=== PATIENT | female | born 1960 | race African-American/Black ===

== ENCOUNTER 2016-12-15 13:42 | Emergency (ER) | payer MEDICARE, MEDICAID ==
[~2016-12-15] VITALS: Ht 172.7 cm; Wt 90.0 kg
[~2016-12-15 13:42] MED LIST: AMLO10TA80 PO; ASPI-1035 PO; CINA30 PO; HYDR-4135 PO; LOSA100T14 PO; MONT10TA24; NEPHRO VITE PO; SEVE800T8 PO
[2016-12-15 13:57] VITALS: BP 128/76
[2016-12-15 14:46] LABS: HEMOGLOBIN. 11.6 g/dL (12.0-16.0); MEAN CORPUSCULAR HEMOGLOBIN 30.1 pg (28.0-32.0); MEAN CORPUSCULAR HGB CONC 33.2 g/dL (31.0-37.0); MEAN CORPUSCULAR VOLUME 90.7 fL (81.0-99.0); MEAN PLATELET VOLUME 8.4 fl (7.4-10.4); PLATELET 177 x1000/uL (130-400); RED BLOOD CELL COUNT 3.85 mill/uL (4.2-5.4); RED CELL DISTRIBUTION WIDTH 18.4 % (11.6-14.6); WHITE BLOOD COUNT 5.4 x1000/uL (4.5-11.0)
[2016-12-15 14:52] LABS: DIFFERENTIAL COMMENT 1
[2016-12-15 14:54] LABS: INR 1.1; PROTHROMBIN TIME 11.2 sec
[2016-12-15 15:08] LABS: ALANINE AMINOTRANSFERASE 32 IU/L (13-61); ALBUMIN 3.9 g/dL (3.4-5.0); ANION GAP 17; CALCIUM 8.7 mg/dL (8.5-10.1); CARBON DIOXIDE 31 mEq/L (21-32); CHLORIDE 96 mEq/L (98-107); INDEX HEMOLYSI 1 (1-3); INDEX ICTERIC 1 (1-4); INDEX LIPEMIC 1 (1-3); UREA NITROGEN BLOOD 45 mg/dL (7-21); eGFR 5 mL/min (>60)
[2016-12-15 15:15] LABS: NT PRO B-TYPE NATRIURETIC PEP 56652 pg/mL (5-125)
[2016-12-15 15:31] LABS: ANISOCYTOSIS 1+; PLATELET ESTIMATE NORMAL
== END 2016-12-15 16:25 | disposition home or self-care (01) ==
LOC: ER 15:49
DX: I12.0 Hypertensive chronic kidney disease with stage 5 chronic kidney disease or end stage renal disease (principal); N18.6 End stage renal disease; I25.2 Old myocardial infarction; N18.9 Chronic kidney disease, unspecified; E11.9 Type 2 diabetes mellitus without complications; I51.9 Heart disease, unspecified; Z99.2 Dependence on renal dialysis; Z79.82 Long term (current) use of aspirin; Z98.51 Tubal ligation status
CPT/HCPCS: 36415; 71010; 80053; 83880; 85025; 85610; 93005; 99285

== ENCOUNTER 2017-04-01 20:22 | Emergency (ER) | payer MEDICARE, MEDICAID ==
[~2017-04-01] VITALS: Ht 172.7 cm; Wt 84.0 kg
[~2017-04-01 20:22] MED LIST changes: -ASPI-1035 PO; +ASPI-1158 PO
[2017-04-01] MEDS ORDERED: IBUPROFEN 600MG TABLET PO STA (20:50)
[2017-04-01 21:08] LABS: BASOPHILS % 0.8 % (0.0-2.0); EOSINOPHILS % 3.5 % (0.0-5.0); HEMOGLOBIN. 11.7 g/dL (12.0-16.0); LYMPHOCYTES % 19.6 % (20.0-50.0); MEAN CORPUSCULAR HEMOGLOBIN 29.2 pg (28.0-32.0); MEAN CORPUSCULAR VOLUME 89.8 fL (81.0-99.0); NEUTROPHILS % 64.1 % (40.0-76.0); PLATELET 168 x1000/uL (130-400); RED BLOOD CELL COUNT 4.01 mill/uL (4.2-5.4); RED CELL DISTRIBUTION WIDTH 17.5 % (11.6-14.6)
[2017-04-01 21:11] LABS: CHLORIDE 96 mEq/L (98-107)
[2017-04-01 21:22] LABS: CARBON DIOXIDE 30 mEq/L (21-32)
[2017-04-01 23:16] VITALS: BP 160/75
== END 2017-04-01 23:17 | disposition home or self-care (01) ==
LOC: ER 21:38
DX: R10.32 Left lower quadrant pain (principal); R63.4 Abnormal weight loss; E11.22 Type 2 diabetes mellitus with diabetic chronic kidney disease; I12.0 Hypertensive chronic kidney disease with stage 5 chronic kidney disease or end stage renal disease; N18.6 End stage renal disease; Z99.2 Dependence on renal dialysis; M54.5 Low back pain; Z68.28 Body mass index [BMI] 28.0-28.9, adult; Z79.82 Long term (current) use of aspirin; Z79.899 Other long term (current) drug therapy
CPT/HCPCS: 36415; 74176; 80053; 85025; 99285

== ENCOUNTER 2017-07-25 20:43 | Inpatient (IN) | payer MEDICARE, MEDICAID ==
[~2017-07-25] VITALS: Ht 172.7 cm; Wt 80.5 kg
[~2017-07-25 20:43] MED LIST changes: +AZOPT BOTHEYE; -LOSA100T14 PO; -MONT10TA24; -NEPHRO VITE PO; +NEPVIT PO; +ZOLP5TAB8 PO
[2017-07-25 22:00] VITALS: BP 132/66
[2017-07-25] MEDS ORDERED: MAGNESIUM/ALUMINUM HYDROXIDE/SIMETHICONE 30ML UDC PO PRN (22:15)
[2017-07-25] MEDS ORDERED: DIPHENHYDRAMINE 50MG/ML VIAL IV PRN (22:15)
[2017-07-25] MEDS ORDERED: IPRATROPIUM/ALBUTEROL 0.5-3(2.5)MG/3ML NEB HHN PRN (22:15)
[2017-07-25] MEDS ORDERED: DEXTROSE 50% WATER 50ML SYRINGE IV PRN (22:15)
[2017-07-25] MEDS ORDERED: CLONIDINE 0.1MG TABLET PO PRN (22:15)
[2017-07-25] MEDS ORDERED: ONDANSETRON HCL 4MG/2ML VIAL IV PRN (22:15)
[2017-07-25] MEDS: BRIMONIDINE 0.2% OPHTH DROPS 5ML BOTHEYE SCH (22:30)
[2017-07-25] MEDS: DORZOLAMIDE 2% OPHTH 10 ML BOTTLE BOTHEYE SCH (23:30)
[2017-07-25] MEDS: BLOOD SUGAR DIAGNOSTIC STRIP TEST SCH (23:57)
[2017-07-25] MEDS: LOSARTAN POTASSIUM 100 MG TABLET PO SCH (23:57)
[2017-07-25] MEDS: DEXAMETHASONE 4MG/ML 1ML VIAL IV SCH (23:57)
[2017-07-26] MEDS: INSULIN LISPRO 100 UNITS/ML SUBCUT SCH ×5 (00:17→23:33)
[2017-07-26] MEDS: BLOOD SUGAR DIAGNOSTIC STRIP TEST SCH ×4 (06:37→23:22)
[2017-07-26] MEDS: DORZOLAMIDE 2% OPHTH 10 ML BOTTLE BOTHEYE SCH ×4 (06:37→23:28)
[2017-07-26 06:50] LABS: HEMATOCRIT. 40.6 % (36.0-48.0); HEMOGLOBIN. 13.5 g/dL (12.0-16.0); MEAN CORPUSCULAR HEMOGLOBIN 30.4 pg (28.0-32.0); MEAN CORPUSCULAR VOLUME 91.4 fL (81.0-99.0); MEAN PLATELET VOLUME 9.4 fl (7.4-10.4); PLATELET 161 x1000/uL (130-400); RED BLOOD CELL COUNT 4.44 mill/uL (4.2-5.4); RED CELL DISTRIBUTION WIDTH 18.1 % (11.6-14.6)
[2017-07-26 07:15] LABS: CHLORIDE 99 mEq/L (98-107)
[2017-07-26 07:27] LABS: CARBON DIOXIDE 26 mEq/L (21-32); PREALBUMIN 20.3 mg/dL (20.0-40.0)
[2017-07-26 08:00] VITALS: BP 136/70
[2017-07-26] MEDS ORDERED: HYDRALAZINE HCL 50MG TABLET PO SCH (09:00)
[2017-07-26] MEDS: FOLIC ACID/VITAMIN B COMP W-C TABLET PO SCH (09:46)
[2017-07-26] MEDS: SEVELAMER CARBONATE 800 MG TABLET PO SCH ×3 (09:46→17:44)
[2017-07-26] MEDS: AMLODIPINE 10MG TABLET PO SCH (09:47)
[2017-07-26] MEDS: HYDRALAZINE HCL 50MG TABLET PO SCH ×2 (09:47→21:00)
[2017-07-26] MEDS: DOCUSATE SODIUM 100MG CAPSULE PO SCH ×2 (09:47→17:44)
[2017-07-26] MEDS: HYDROCODONE/ACETAMINOPHEN 5/325MG TABLET PO PRN ×2 (09:48→20:56)
[2017-07-26] MEDS: BRIMONIDINE 0.2% OPHTH DROPS 5ML BOTHEYE SCH ×3 (09:49→23:28)
[2017-07-26 14:10] VITALS: BP_SYST 119; BP_SYST 123; BP_DIAS 50; BP_DIAS 53
[2017-07-26] MEDS: CINACALCET HCL 30MG TABLET PO SCH (17:45)
[2017-07-26 20:00] VITALS: BP 129/58
[2017-07-26] MEDS: LOSARTAN POTASSIUM 100 MG TABLET PO SCH (20:54)
[2017-07-26 21:50] LABS: PLATELET ESTIMATE NORMAL
[2017-07-26] MEDS: DEXAMETHASONE 4MG/ML 1ML VIAL IV SCH (23:27)
[2017-07-27 06:33] LABS: BASOPHILS % 0.3 % (0.0-2.0); EOSINOPHILS % 0.1 % (0.0-5.0); HEMOGLOBIN. 14.5 g/dL (12.0-16.0); LYMPHOCYTES % 7.3 % (20.0-50.0); MEAN CORPUSCULAR HEMOGLOBIN 29.9 pg (28.0-32.0); MEAN CORPUSCULAR VOLUME 90.8 fL (81.0-99.0); MEAN PLATELET VOLUME 9.3 fl (7.4-10.4); NEUTROPHILS % 86.3 % (40.0-76.0); PLATELET 183 x1000/uL (130-400); RED BLOOD CELL COUNT 4.84 mill/uL (4.2-5.4); RED CELL DISTRIBUTION WIDTH 17.1 % (11.6-14.6)
[2017-07-27] MEDS: BRIMONIDINE 0.2% OPHTH DROPS 5ML BOTHEYE SCH ×3 (06:33→21:45)
[2017-07-27] MEDS: BLOOD SUGAR DIAGNOSTIC STRIP TEST SCH ×3 (06:40→17:28)
[2017-07-27] MEDS: INSULIN LISPRO 100 UNITS/ML SUBCUT SCH ×3 (06:47→17:28)
[2017-07-27] MEDS: DORZOLAMIDE 2% OPHTH 10 ML BOTTLE BOTHEYE SCH ×3 (06:48→23:30)
[2017-07-27 08:00] VITALS: BP 155/76
[2017-07-27 08:22] LABS: PHOSPHORUS 3.4 mg/dL (2.5-4.9)
[2017-07-27] MEDS: AMLODIPINE 10MG TABLET PO SCH (09:00)
[2017-07-27] MEDS: HYDRALAZINE HCL 50MG TABLET PO SCH ×2 (09:00→21:44)
[2017-07-27] MEDS: SEVELAMER CARBONATE 800 MG TABLET PO SCH ×3 (09:30→18:12)
[2017-07-27] MEDS: FOLIC ACID/VITAMIN B COMP W-C TABLET PO SCH (09:31)
[2017-07-27] MEDS: DOCUSATE SODIUM 100MG CAPSULE PO SCH ×2 (09:31→18:18)
[2017-07-27] MEDS ORDERED: NA PHOS,M-B/NA PHOS,DI-BA ENEMA 118ML PR NR (10:00)
[2017-07-27] MEDS: LACTULOSE 20G/30ML UDC PO SCH ×4 (10:30→21:00)
[2017-07-27] MEDS: HYDROCODONE/ACETAMINOPHEN 5/325MG TABLET PO PRN (14:25)
[2017-07-27] MEDS: CINACALCET HCL 30MG TABLET PO SCH (18:12)
[2017-07-27] MEDS ORDERED: NA PHOS,M-B/NA PHOS,DI-BA ENEMA 118ML PR PRN (18:45)
[2017-07-27 19:51] LABS: HEPATITIS B SURFACE ANTIGEN NEGATIVE
[2017-07-27 20:00] VITALS: BP 149/64
[2017-07-27 20:20] LABS: HEPATITIS B CORE AB IGM NEGATIVE
[2017-07-27 20:21] LABS: HEPATITIS A AB IGM NEGATIVE (NEGATIVE)
[2017-07-27] MEDS: ZOLPIDEM TARTRATE 5MG TABLET PO PRN (21:44)
[2017-07-27] MEDS: POLYETHYLENE GLYCOL 3350 (17GM) 1 DOSE PACK PO SCH (21:44)
[2017-07-27] MEDS: LOSARTAN POTASSIUM 100 MG TABLET PO SCH (21:45)
[2017-07-27] MEDS: INSULIN DETEMIR UD 100 UNITS/ML SYR SUBCUT SCH (21:55)
[2017-07-28] MEDS: BLOOD SUGAR DIAGNOSTIC STRIP TEST SCH ×5 (00:01→23:25)
[2017-07-28] MEDS: HYDROCODONE/ACETAMINOPHEN 5/325MG TABLET PO PRN ×3 (00:18→21:26)
[2017-07-28] MEDS: INSULIN LISPRO 100 UNITS/ML SUBCUT SCH ×5 (00:23→23:36)
[2017-07-28] MEDS: DEXAMETHASONE 4MG/ML 1ML VIAL IV SCH ×2 (00:26→23:20)
[2017-07-28] MEDS ORDERED: DEXAMETHASONE 4MG/ML 1ML VIAL IV NR (00:30)
[2017-07-28] MEDS: BRIMONIDINE 0.2% OPHTH DROPS 5ML BOTHEYE SCH ×3 (06:00→21:56)
[2017-07-28 07:14] LABS: HEMOGLOBIN. 14.7 g/dL (12.0-16.0); MEAN CORPUSCULAR HEMOGLOBIN 30.5 pg (28.0-32.0); MEAN CORPUSCULAR VOLUME 91.4 fL (81.0-99.0); MEAN PLATELET VOLUME 9.4 fl (7.4-10.4); PLATELET 172 x1000/uL (130-400); RED BLOOD CELL COUNT 4.81 mill/uL (4.2-5.4); RED CELL DISTRIBUTION WIDTH 17.6 % (11.6-14.6)
[2017-07-28] MEDS: DORZOLAMIDE 2% OPHTH 10 ML BOTTLE BOTHEYE SCH ×3 (07:30→21:57)
[2017-07-28 07:32] LABS: FERRITIN 1577 ng/mL (10-291)
[2017-07-28 07:37] LABS: PHOSPHORUS 2.7 mg/dL (2.5-4.9)
[2017-07-28 08:00] VITALS: BP 174/79
[2017-07-28 08:20] LABS: VITAMIN B12 SERUM 995 pg/mL (211-911)
[2017-07-28 08:37] LABS: FOLIC ACID (FOLATE) SERUM > 20.00 ng/mL (>5.38)
[2017-07-28] MEDS: HYDRALAZINE HCL 50MG TABLET PO SCH ×2 (08:39→21:28)
[2017-07-28] MEDS: FOLIC ACID/VITAMIN B COMP W-C TABLET PO SCH (08:39)
[2017-07-28] MEDS: AMLODIPINE 10MG TABLET PO SCH (08:39)
[2017-07-28] MEDS: SEVELAMER CARBONATE 800 MG TABLET PO SCH ×3 (08:40→17:31)
[2017-07-28] MEDS: DOCUSATE SODIUM 100MG CAPSULE PO SCH ×2 (08:40→17:31)
[2017-07-28] MEDS ORDERED: NA PHOS,M-B/NA PHOS,DI-BA ENEMA 118ML PR PRN (09:00)
[2017-07-28] MEDS: BISACODYL 10MG SUPP PR SCH (09:00)
[2017-07-28 10:03] LABS: PLATELET ESTIMATE NORMAL
[2017-07-28] MEDS: LACTULOSE 20G/30ML UDC PO SCH ×3 (12:39→20:00)
[2017-07-28 12:50] VITALS: BP 163/76
[2017-07-28] MEDS ORDERED: LACTULOSE 20G/30ML UDC PO STA (15:43)
[2017-07-28] MEDS ORDERED: NA PHOS,M-B/NA PHOS,DI-BA ENEMA 118ML PR NR (15:50)
[2017-07-28] MEDS: CINACALCET HCL 30MG TABLET PO SCH (17:31)
[2017-07-28 20:00] VITALS: BP 142/66
[2017-07-28] MEDS: POLYETHYLENE GLYCOL 3350 (17GM) 1 DOSE PACK PO SCH (21:00)
[2017-07-28] MEDS: LOSARTAN POTASSIUM 100 MG TABLET PO SCH (21:24)
[2017-07-28] MEDS: INSULIN DETEMIR UD 100 UNITS/ML SYR SUBCUT SCH (22:03)
[2017-07-28] MEDS: ZOLPIDEM TARTRATE 5MG TABLET PO PRN (23:31)
[2017-07-29] MEDS: BLOOD SUGAR DIAGNOSTIC STRIP TEST SCH ×4 (06:18→23:42)
[2017-07-29] MEDS: BRIMONIDINE 0.2% OPHTH DROPS 5ML BOTHEYE SCH ×3 (06:21→22:22)
[2017-07-29] MEDS: INSULIN LISPRO 100 UNITS/ML SUBCUT SCH ×4 (06:25→23:50)
[2017-07-29] MEDS: DORZOLAMIDE 2% OPHTH 10 ML BOTTLE BOTHEYE SCH ×3 (07:30→23:51)
[2017-07-29 08:00] VITALS: BP 153/81
[2017-07-29] MEDS: HYDROCODONE/ACETAMINOPHEN 5/325MG TABLET PO PRN ×3 (08:10→22:16)
[2017-07-29] MEDS: SEVELAMER CARBONATE 800 MG TABLET PO SCH ×3 (08:11→17:11)
[2017-07-29] MEDS: FOLIC ACID/VITAMIN B COMP W-C TABLET PO SCH (08:11)
[2017-07-29] MEDS: DOCUSATE SODIUM 100MG CAPSULE PO SCH ×2 (08:11→17:11)
[2017-07-29] MEDS: BISACODYL 10MG SUPP PR SCH (08:11)
[2017-07-29] MEDS ORDERED: LACTULOSE 20G/30ML UDC PO PRN (09:00)
[2017-07-29] MEDS: AMLODIPINE 10MG TABLET PO SCH ×2 (09:00→12:04)
[2017-07-29] MEDS: HYDRALAZINE HCL 50MG TABLET PO SCH ×2 (09:00→21:00)
[2017-07-29] MEDS ORDERED: NA PHOS,M-B/NA PHOS,DI-BA ENEMA 118ML PR NR (16:15)
[2017-07-29] MEDS: LACTULOSE 20G/30ML UDC PO SCH ×2 (16:22→22:15)
[2017-07-29] MEDS: CINACALCET HCL 30MG TABLET PO SCH (17:11)
[2017-07-29 20:00] VITALS: BP 154/79
[2017-07-29] MEDS: POLYETHYLENE GLYCOL 3350 (17GM) 1 DOSE PACK PO SCH (21:00)
[2017-07-29] MEDS: LOSARTAN POTASSIUM 100 MG TABLET PO SCH (22:16)
[2017-07-29] MEDS: INSULIN DETEMIR UD 100 UNITS/ML SYR SUBCUT SCH (22:22)
[2017-07-29] MEDS: DEXAMETHASONE 4MG/ML 1ML VIAL IV SCH (23:38)
[2017-07-29] MEDS: ZOLPIDEM TARTRATE 5MG TABLET PO PRN (23:47)
[2017-07-30] MEDS: BRIMONIDINE 0.2% OPHTH DROPS 5ML BOTHEYE SCH ×3 (06:00→23:22)
[2017-07-30] MEDS: BLOOD SUGAR DIAGNOSTIC STRIP TEST SCH ×3 (06:00→17:34)
[2017-07-30] MEDS: INSULIN LISPRO 100 UNITS/ML SUBCUT SCH ×3 (06:00→17:33)
[2017-07-30 07:10] LABS: HEMATOCRIT 40.5 % (36.0-48.0); HEMOGLOBIN 13.5 g/dL (12.0-16.0); MEAN CORPUSCULAR HEMOGLOBIN 29.9 pg (28.0-32.0); PLATELET 171 x1000/uL (130-400); RED CELL DISTRIBUTION WIDTH 17.2 % (11.6-14.6)
[2017-07-30 08:00] VITALS: BP 162/69
[2017-07-30] MEDS: DORZOLAMIDE 2% OPHTH 10 ML BOTTLE BOTHEYE SCH ×3 (08:08→23:22)
[2017-07-30] MEDS: DOCUSATE SODIUM 100MG CAPSULE PO SCH ×2 (08:22→16:15)
[2017-07-30] MEDS: HYDRALAZINE HCL 50MG TABLET PO SCH ×2 (08:22→21:29)
[2017-07-30] MEDS: FOLIC ACID/VITAMIN B COMP W-C TABLET PO SCH (08:23)
[2017-07-30] MEDS: SEVELAMER CARBONATE 800 MG TABLET PO SCH ×3 (08:23→16:15)
[2017-07-30] MEDS: BISACODYL 10MG SUPP PR SCH (08:23)
[2017-07-30] MEDS: LACTULOSE 20G/30ML UDC PO SCH ×4 (08:23→21:00)
[2017-07-30] MEDS: AMLODIPINE 10MG TABLET PO SCH (08:23)
[2017-07-30] MEDS: HYDROCODONE/ACETAMINOPHEN 5/325MG TABLET PO PRN ×2 (08:24→13:29)
[2017-07-30] MEDS: CINACALCET HCL 30MG TABLET PO SCH (16:15)
[2017-07-30 20:00] VITALS: BP 147/66
[2017-07-30] MEDS: LOSARTAN POTASSIUM 100 MG TABLET PO SCH (21:29)
[2017-07-30] MEDS: POLYETHYLENE GLYCOL 3350 (17GM) 1 DOSE PACK PO SCH (21:31)
[2017-07-30] MEDS: ZOLPIDEM TARTRATE 5MG TABLET PO PRN (23:23)
[2017-07-30] MEDS: INSULIN DETEMIR UD 100 UNITS/ML SYR SUBCUT SCH (23:30)
[2017-07-31] MEDS: INSULIN LISPRO 100 UNITS/ML SUBCUT SCH ×4 (02:18→17:54)
[2017-07-31] MEDS ORDERED: HYDROCODONE/ACETAMINOPHEN 5/325MG TABLET PO PRN (04:45)
[2017-07-31] MEDS: BRIMONIDINE 0.2% OPHTH DROPS 5ML BOTHEYE SCH ×3 (05:29→22:00)
[2017-07-31] MEDS: BLOOD SUGAR DIAGNOSTIC STRIP TEST SCH ×4 (05:29→17:53)
[2017-07-31 07:00] VITALS: BP 151/68
[2017-07-31] MEDS: DORZOLAMIDE 2% OPHTH 10 ML BOTTLE BOTHEYE SCH ×3 (07:37→23:30)
[2017-07-31] MEDS: HYDRALAZINE HCL 50MG TABLET PO SCH ×2 (08:51→21:00)
[2017-07-31] MEDS: SEVELAMER CARBONATE 800 MG TABLET PO SCH ×3 (08:51→17:45)
[2017-07-31] MEDS: DOCUSATE SODIUM 100MG CAPSULE PO SCH ×2 (08:51→17:45)
[2017-07-31] MEDS: FOLIC ACID/VITAMIN B COMP W-C TABLET PO SCH (08:51)
[2017-07-31] MEDS: AMLODIPINE 10MG TABLET PO SCH (08:52)
[2017-07-31] MEDS: LACTULOSE 20G/30ML UDC PO SCH ×4 (08:52→21:00)
[2017-07-31] MEDS: BISACODYL 10MG SUPP PR SCH (11:25)
[2017-07-31 12:40] VITALS: BP 170/86
[2017-07-31] MEDS: HYDROCODONE/ACETAMINOPHEN 5/325MG TABLET PO PRN ×3 (12:44→21:02)
[2017-07-31 13:12] LABS: 25-HYDROXY VITAMIN D3 13 ng/mL (.)
[2017-07-31 16:25] VITALS: BP 163/75
[2017-07-31] MEDS: CINACALCET HCL 30MG TABLET PO SCH (17:45)
[2017-07-31 20:00] VITALS: BP 115/90
[2017-07-31] MEDS: POLYETHYLENE GLYCOL 3350 (17GM) 1 DOSE PACK PO SCH (21:00)
[2017-08-01] MEDS: ZOLPIDEM TARTRATE 5MG TABLET PO PRN ×2 (00:37→23:16)
[2017-08-01] MEDS: LOSARTAN POTASSIUM 100 MG TABLET PO SCH ×2 (00:37→22:17)
[2017-08-01] MEDS: BLOOD SUGAR DIAGNOSTIC STRIP TEST SCH ×5 (00:38→23:54)
[2017-08-01] MEDS: INSULIN DETEMIR UD 100 UNITS/ML SYR SUBCUT SCH ×2 (00:48→23:21)
[2017-08-01] MEDS: INSULIN LISPRO 100 UNITS/ML SUBCUT SCH ×5 (06:00→23:59)
[2017-08-01] MEDS: BRIMONIDINE 0.2% OPHTH DROPS 5ML BOTHEYE SCH ×3 (06:00→22:18)
[2017-08-01] MEDS: HYDROCODONE/ACETAMINOPHEN 5/325MG TABLET PO PRN (06:31)
[2017-08-01] MEDS: DORZOLAMIDE 2% OPHTH 10 ML BOTTLE BOTHEYE SCH ×3 (06:36→23:15)
[2017-08-01 07:22] LABS: T4 FREE 1.07 ng/dL (0.76-1.46)
[2017-08-01 08:00] VITALS: BP 166/80
[2017-08-01] MEDS: SEVELAMER CARBONATE 800 MG TABLET PO SCH ×3 (09:00→16:54)
[2017-08-01] MEDS: BISACODYL 10MG SUPP PR SCH (09:00)
[2017-08-01] MEDS: AMLODIPINE 10MG TABLET PO SCH (09:11)
[2017-08-01] MEDS: FOLIC ACID/VITAMIN B COMP W-C TABLET PO SCH (09:12)
[2017-08-01] MEDS: DOCUSATE SODIUM 100MG CAPSULE PO SCH ×2 (09:12→16:54)
[2017-08-01] MEDS: HYDRALAZINE HCL 50MG TABLET PO SCH ×2 (09:13→22:18)
[2017-08-01] MEDS: ACETAMINOPHEN 325MG TABLET PO PRN ×2 (09:22→15:42)
[2017-08-01] MEDS: CINACALCET HCL 30MG TABLET PO SCH (16:54)
[2017-08-01] MEDS: ERGOCALCIFEROL 50000UNITS CAPSULE PO SCH ×2 (18:30→19:58)
[2017-08-01 20:00] VITALS: BP 171/82
[2017-08-01] MEDS: POLYETHYLENE GLYCOL 3350 (17GM) 1 DOSE PACK PO SCH (22:19)
[2017-08-02] MEDS: INSULIN LISPRO 100 UNITS/ML SUBCUT SCH ×4 (06:00→23:59)
[2017-08-02] MEDS: BLOOD SUGAR DIAGNOSTIC STRIP TEST SCH ×4 (06:03→23:23)
[2017-08-02] MEDS: ACETAMINOPHEN 325MG TABLET PO PRN (06:18)
[2017-08-02] MEDS: LEVOTHYROXINE SODIUM 25MCG TABLET PO SCH (06:19)
[2017-08-02] MEDS: BRIMONIDINE 0.2% OPHTH DROPS 5ML BOTHEYE SCH ×3 (06:19→22:26)
[2017-08-02 06:25] LABS: HEMATOCRIT 37.4 % (36.0-48.0); HEMOGLOBIN 12.5 g/dL (12.0-16.0); MEAN CORPUSCULAR HEMOGLOBIN 30.3 pg (28.0-32.0); MEAN CORPUSCULAR VOLUME 90.7 fL (81.0-99.0); PLATELET 197 x1000/uL (130-400); RED BLOOD CELL COUNT 4.13 mill/uL (4.2-5.4)
[2017-08-02] MEDS: DORZOLAMIDE 2% OPHTH 10 ML BOTTLE BOTHEYE SCH ×3 (07:21→23:23)
[2017-08-02 07:49] LABS: PHOSPHORUS 4.9 mg/dL (2.5-4.9)
[2017-08-02 08:00] VITALS: BP 146/70
[2017-08-02] MEDS: FOLIC ACID/VITAMIN B COMP W-C TABLET PO SCH (08:41)
[2017-08-02] MEDS: HYDRALAZINE HCL 50MG TABLET PO SCH ×2 (08:41→22:25)
[2017-08-02] MEDS: SEVELAMER CARBONATE 800 MG TABLET PO SCH ×3 (08:41→18:06)
[2017-08-02] MEDS: AMLODIPINE 10MG TABLET PO SCH (08:41)
[2017-08-02] MEDS: DOCUSATE SODIUM 100MG CAPSULE PO SCH ×2 (08:41→18:07)
[2017-08-02] MEDS: BISACODYL 10MG SUPP PR SCH (08:41)
[2017-08-02] MEDS: HYDROCODONE/ACETAMINOPHEN 5/325MG TABLET PO PRN ×3 (11:01→20:35)
[2017-08-02] MEDS ORDERED: LACTULOSE 20G/30ML UDC PO NR (13:00)
[2017-08-02] MEDS: CINACALCET HCL 30MG TABLET PO SCH (18:07)
[2017-08-02 20:00] VITALS: BP 146/63
[2017-08-02] MEDS: POLYETHYLENE GLYCOL 3350 (17GM) 1 DOSE PACK PO SCH (20:35)
[2017-08-02] MEDS: LOSARTAN POTASSIUM 100 MG TABLET PO SCH (22:25)
[2017-08-02] MEDS: INSULIN DETEMIR UD 100 UNITS/ML SYR SUBCUT SCH (23:27)
[2017-08-02] MEDS: ZOLPIDEM TARTRATE 5MG TABLET PO PRN (23:30)
[2017-08-03] MEDS: INSULIN LISPRO 100 UNITS/ML SUBCUT SCH ×3 (06:00→17:45)
[2017-08-03] MEDS: BLOOD SUGAR DIAGNOSTIC STRIP TEST SCH ×4 (06:30→23:22)
[2017-08-03] MEDS: LEVOTHYROXINE SODIUM 25MCG TABLET PO SCH (06:35)
[2017-08-03] MEDS: BRIMONIDINE 0.2% OPHTH DROPS 5ML BOTHEYE SCH ×3 (06:35→21:50)
[2017-08-03] MEDS: DORZOLAMIDE 2% OPHTH 10 ML BOTTLE BOTHEYE SCH ×3 (06:38→23:22)
[2017-08-03] MEDS: HYDROCODONE/ACETAMINOPHEN 5/325MG TABLET PO PRN ×2 (07:09→12:41)
[2017-08-03 08:00] VITALS: BP 153/81
[2017-08-03] MEDS: DOCUSATE SODIUM 100MG CAPSULE PO SCH ×2 (09:38→17:03)
[2017-08-03] MEDS: AMLODIPINE 10MG TABLET PO SCH (09:38)
[2017-08-03] MEDS: HYDRALAZINE HCL 50MG TABLET PO SCH ×2 (09:38→21:50)
[2017-08-03] MEDS: SEVELAMER CARBONATE 800 MG TABLET PO SCH ×3 (09:38→17:03)
[2017-08-03] MEDS: FOLIC ACID/VITAMIN B COMP W-C TABLET PO SCH (09:38)
[2017-08-03] MEDS: BISACODYL 10MG SUPP PR SCH (11:36)
[2017-08-03 12:40] VITALS: BP 167/83
[2017-08-03] MEDS: CINACALCET HCL 30MG TABLET PO SCH (17:05)
[2017-08-03 20:00] VITALS: BP 115/64
[2017-08-03] MEDS: LOSARTAN POTASSIUM 100 MG TABLET PO SCH (21:50)
[2017-08-03] MEDS: POLYETHYLENE GLYCOL 3350 (17GM) 1 DOSE PACK PO SCH (21:51)
[2017-08-03] MEDS: INSULIN DETEMIR UD 100 UNITS/ML SYR SUBCUT SCH (23:22)
[2017-08-03] MEDS: ZOLPIDEM TARTRATE 5MG TABLET PO PRN (23:22)
[2017-08-04] MEDS: NA PHOS,M-B/NA PHOS,DI-BA ENEMA 118ML PR PRN (04:50)
[2017-08-04] MEDS: INSULIN LISPRO 100 UNITS/ML SUBCUT SCH ×5 (06:00→23:17)
[2017-08-04] MEDS: BLOOD SUGAR DIAGNOSTIC STRIP TEST SCH ×4 (06:27→23:34)
[2017-08-04] MEDS: BRIMONIDINE 0.2% OPHTH DROPS 5ML BOTHEYE SCH ×3 (06:34→21:57)
[2017-08-04] MEDS: LEVOTHYROXINE SODIUM 25MCG TABLET PO SCH (06:34)
[2017-08-04] MEDS: DORZOLAMIDE 2% OPHTH 10 ML BOTTLE BOTHEYE SCH ×3 (06:36→23:21)
[2017-08-04] MEDS: ACETAMINOPHEN 325MG TABLET PO PRN ×2 (06:42→12:59)
[2017-08-04 07:10] LABS: HEMATOCRIT 38.5 % (36.0-48.0); HEMOGLOBIN 12.8 g/dL (12.0-16.0); MEAN CORPUSCULAR HEMOGLOBIN 30.5 pg (28.0-32.0); MEAN CORPUSCULAR VOLUME 91.9 fL (81.0-99.0); PLATELET 202 x1000/uL (130-400); RED BLOOD CELL COUNT 4.19 mill/uL (4.2-5.4); RED CELL DISTRIBUTION WIDTH 17.1 % (11.6-14.6)
[2017-08-04 08:00] VITALS: BP 153/72
[2017-08-04] MEDS: FOLIC ACID/VITAMIN B COMP W-C TABLET PO SCH (08:56)
[2017-08-04] MEDS: DOCUSATE SODIUM 100MG CAPSULE PO SCH ×2 (08:57→18:17)
[2017-08-04] MEDS: HYDRALAZINE HCL 50MG TABLET PO SCH ×2 (08:57→21:57)
[2017-08-04] MEDS: AMLODIPINE 10MG TABLET PO SCH (08:57)
[2017-08-04] MEDS: BISACODYL 10MG SUPP PR SCH (08:58)
[2017-08-04] MEDS: SEVELAMER CARBONATE 800 MG TABLET PO SCH ×3 (08:58→18:16)
[2017-08-04] MEDS ORDERED: NON FORMULARY PATIENT HOME MED EA XX PRN (09:15)
[2017-08-04] MEDS: BENZOCAINE (ORAJEL) PASTE MM PRN (12:57)
[2017-08-04] MEDS ORDERED: ALBUTEROL (0.083%) 2.5MG/3ML NEB HHN PRN (13:15)
[2017-08-04] MEDS: CINACALCET HCL 30MG TABLET PO SCH (18:16)
[2017-08-04] MEDS: HYDROCODONE/ACETAMINOPHEN 5/325MG TABLET PO PRN (18:17)
[2017-08-04 20:00] VITALS: BP 159/72
[2017-08-04] MEDS: POLYETHYLENE GLYCOL 3350 (17GM) 1 DOSE PACK PO SCH (21:00)
[2017-08-04] MEDS: LOSARTAN POTASSIUM 100 MG TABLET PO SCH (21:57)
[2017-08-04] MEDS: INSULIN DETEMIR UD 100 UNITS/ML SYR SUBCUT SCH (22:00)
[2017-08-04] MEDS: ZOLPIDEM TARTRATE 5MG TABLET PO PRN (23:20)
[2017-08-05] MEDS: HYDROCODONE/ACETAMINOPHEN 5/325MG TABLET PO PRN ×2 (04:41→16:25)
[2017-08-05] MEDS: BRIMONIDINE 0.2% OPHTH DROPS 5ML BOTHEYE SCH ×3 (06:39→21:27)
[2017-08-05] MEDS: LEVOTHYROXINE SODIUM 25MCG TABLET PO SCH (06:39)
[2017-08-05] MEDS: INSULIN LISPRO 100 UNITS/ML SUBCUT SCH ×4 (06:43→23:07)
[2017-08-05] MEDS: BLOOD SUGAR DIAGNOSTIC STRIP TEST SCH ×4 (06:44→23:07)
[2017-08-05] MEDS: DORZOLAMIDE 2% OPHTH 10 ML BOTTLE BOTHEYE SCH ×3 (07:02→23:07)
[2017-08-05 08:00] VITALS: BP 160/84
[2017-08-05] MEDS: AMLODIPINE 10MG TABLET PO SCH (08:43)
[2017-08-05] MEDS: SEVELAMER CARBONATE 800 MG TABLET PO SCH ×3 (08:43→17:00)
[2017-08-05] MEDS: HYDRALAZINE HCL 50MG TABLET PO SCH ×2 (08:43→20:45)
[2017-08-05] MEDS: DOCUSATE SODIUM 100MG CAPSULE PO SCH ×2 (08:43→17:00)
[2017-08-05] MEDS: BISACODYL 10MG SUPP PR SCH (08:43)
[2017-08-05] MEDS: FOLIC ACID/VITAMIN B COMP W-C TABLET PO SCH (08:43)
[2017-08-05] MEDS: LIDOCAINE 5% PATCH TOP SCH (08:44)
[2017-08-05] MEDS: CINACALCET HCL 30MG TABLET PO SCH (17:00)
[2017-08-05 20:00] VITALS: BP 158/69
[2017-08-05] MEDS: POLYETHYLENE GLYCOL 3350 (17GM) 1 DOSE PACK PO SCH (20:45)
[2017-08-05] MEDS: LOSARTAN POTASSIUM 100 MG TABLET PO SCH (20:45)
[2017-08-05] MEDS: INSULIN DETEMIR UD 100 UNITS/ML SYR SUBCUT SCH (22:00)
[2017-08-05] MEDS: ZOLPIDEM TARTRATE 5MG TABLET PO PRN (23:06)
[2017-08-06] MEDS: BENZOCAINE (ORAJEL) PASTE MM PRN ×4 (03:54→21:35)
[2017-08-06] MEDS: HYDROCODONE/ACETAMINOPHEN 5/325MG TABLET PO PRN ×4 (04:34→22:47)
[2017-08-06] MEDS: BRIMONIDINE 0.2% OPHTH DROPS 5ML BOTHEYE SCH ×3 (05:05→21:20)
[2017-08-06] MEDS: INSULIN LISPRO 100 UNITS/ML SUBCUT SCH ×4 (06:41→23:14)
[2017-08-06] MEDS: DORZOLAMIDE 2% OPHTH 10 ML BOTTLE BOTHEYE SCH ×3 (06:42→22:40)
[2017-08-06] MEDS: LEVOTHYROXINE SODIUM 25MCG TABLET PO SCH (06:42)
[2017-08-06] MEDS: BLOOD SUGAR DIAGNOSTIC STRIP TEST SCH ×4 (06:42→23:14)
[2017-08-06 06:48] LABS: HEMATOCRIT 35.4 % (36.0-48.0); HEMOGLOBIN 11.8 g/dL (12.0-16.0); MEAN CORPUSCULAR HEMOGLOBIN 30.5 pg (28.0-32.0); MEAN CORPUSCULAR VOLUME 91.2 fL (81.0-99.0); PLATELET 194 x1000/uL (130-400); RED BLOOD CELL COUNT 3.88 mill/uL (4.2-5.4); RED CELL DISTRIBUTION WIDTH 16.8 % (11.6-14.6)
[2017-08-06 07:50] LABS: PHOSPHORUS 5.3 mg/dL (2.5-4.9)
[2017-08-06 08:00] VITALS: BP 137/65
[2017-08-06] MEDS: BISACODYL 10MG SUPP PR SCH ×2 (08:28→12:22)
[2017-08-06] MEDS: LIDOCAINE 5% PATCH TOP SCH (08:48)
[2017-08-06] MEDS: DOCUSATE SODIUM 100MG CAPSULE PO SCH ×2 (08:48→16:22)
[2017-08-06] MEDS: SEVELAMER CARBONATE 800 MG TABLET PO SCH ×5 (08:49→16:22)
[2017-08-06] MEDS: FOLIC ACID/VITAMIN B COMP W-C TABLET PO SCH (08:49)
[2017-08-06] MEDS: HYDRALAZINE HCL 50MG TABLET PO SCH ×2 (08:49→21:20)
[2017-08-06] MEDS: AMLODIPINE 10MG TABLET PO SCH (08:49)
[2017-08-06] MEDS: CINACALCET HCL 30MG TABLET PO SCH (16:22)
[2017-08-06 20:00] VITALS: BP 129/65
[2017-08-06] MEDS: POLYETHYLENE GLYCOL 3350 (17GM) 1 DOSE PACK PO SCH (21:00)
[2017-08-06] MEDS ORDERED: ZOLPIDEM TARTRATE 5MG TABLET PO PRN ×3 (21:00)
[2017-08-06] MEDS: LOSARTAN POTASSIUM 100 MG TABLET PO SCH (21:20)
[2017-08-06] MEDS: INSULIN DETEMIR UD 100 UNITS/ML SYR SUBCUT SCH (22:00)
[2017-08-07] MEDS: ZOLPIDEM TARTRATE 5MG TABLET PO PRN (00:16)
[2017-08-07] MEDS: INSULIN LISPRO 100 UNITS/ML SUBCUT SCH ×3 (05:26→16:58)
[2017-08-07] MEDS: BLOOD SUGAR DIAGNOSTIC STRIP TEST SCH ×3 (05:27→16:58)
[2017-08-07] MEDS: BRIMONIDINE 0.2% OPHTH DROPS 5ML BOTHEYE SCH ×3 (05:28→22:00)
[2017-08-07] MEDS: LEVOTHYROXINE SODIUM 25MCG TABLET PO SCH (06:13)
[2017-08-07] MEDS: DORZOLAMIDE 2% OPHTH 10 ML BOTTLE BOTHEYE SCH ×3 (06:13→23:30)
[2017-08-07] MEDS: HYDROCODONE/ACETAMINOPHEN 5/325MG TABLET PO PRN (06:13)
[2017-08-07 07:00] VITALS: BP 114/66
[2017-08-07 08:02] LABS: HEMATOCRIT 33.2 % (36.0-48.0); HEMOGLOBIN 11.2 g/dL (12.0-16.0); MEAN CORPUSCULAR HEMOGLOBIN 30.9 pg (28.0-32.0); MEAN CORPUSCULAR VOLUME 91.5 fL (81.0-99.0); PLATELET 167 x1000/uL (130-400); RED BLOOD CELL COUNT 3.63 mill/uL (4.2-5.4); RED CELL DISTRIBUTION WIDTH 16.8 % (11.6-14.6)
[2017-08-07] MEDS: BISACODYL 10MG SUPP PR SCH (09:00)
[2017-08-07] MEDS: SEVELAMER CARBONATE 800 MG TABLET PO SCH ×3 (09:29→16:46)
[2017-08-07] MEDS: FOLIC ACID/VITAMIN B COMP W-C TABLET PO SCH (09:29)
[2017-08-07] MEDS: DOCUSATE SODIUM 100MG CAPSULE PO SCH ×2 (09:29→16:46)
[2017-08-07] MEDS: LIDOCAINE 5% PATCH TOP SCH (09:30)
[2017-08-07 11:40] VITALS: BP 148/70
[2017-08-07] MEDS: HYDRALAZINE HCL 50MG TABLET PO SCH ×2 (12:11→20:50)
[2017-08-07] MEDS: AMLODIPINE 10MG TABLET PO SCH (12:11)
[2017-08-07] MEDS: GABAPENTIN 100MG CAPSULE PO SCH ×2 (14:02→21:00)
[2017-08-07] MEDS: CINACALCET HCL 30MG TABLET PO SCH (16:46)
[2017-08-07] MEDS: BENZOCAINE (ORAJEL) PASTE MM PRN ×2 (17:36→21:04)
[2017-08-07 20:00] VITALS: BP 148/70
[2017-08-07] MEDS: LOSARTAN POTASSIUM 100 MG TABLET PO SCH (20:50)
[2017-08-07] MEDS: POLYETHYLENE GLYCOL 3350 (17GM) 1 DOSE PACK PO SCH (20:51)
[2017-08-07] MEDS: INSULIN DETEMIR UD 100 UNITS/ML SYR SUBCUT SCH (21:21)
[2017-08-08] MEDS: BLOOD SUGAR DIAGNOSTIC STRIP TEST SCH ×5 (00:29→20:54)
[2017-08-08] MEDS: LEVOTHYROXINE SODIUM 25MCG TABLET PO SCH (05:18)
[2017-08-08] MEDS: HYDROCODONE/ACETAMINOPHEN 5/325MG TABLET PO PRN ×3 (05:18→21:18)
[2017-08-08] MEDS: GABAPENTIN 100MG CAPSULE PO SCH ×3 (05:19→21:18)
[2017-08-08] MEDS: BRIMONIDINE 0.2% OPHTH DROPS 5ML BOTHEYE SCH ×3 (05:20→21:18)
[2017-08-08] MEDS: INSULIN LISPRO 100 UNITS/ML SUBCUT SCH ×5 (06:00→21:19)
[2017-08-08 06:41] LABS: HEMATOCRIT 38.6 % (36.0-48.0); HEMOGLOBIN 12.9 g/dL (12.0-16.0); MEAN CORPUSCULAR HEMOGLOBIN 30.5 pg (28.0-32.0); MEAN CORPUSCULAR VOLUME 91.6 fL (81.0-99.0); PLATELET 186 x1000/uL (130-400); RED BLOOD CELL COUNT 4.22 mill/uL (4.2-5.4)
[2017-08-08 08:00] VITALS: BP 144/68
[2017-08-08] MEDS: HYDRALAZINE HCL 50MG TABLET PO SCH ×2 (09:00→21:18)
[2017-08-08] MEDS: AMLODIPINE 10MG TABLET PO SCH (09:00)
[2017-08-08] MEDS: DOCUSATE SODIUM 100MG CAPSULE PO SCH ×2 (09:17→17:00)
[2017-08-08] MEDS: FOLIC ACID/VITAMIN B COMP W-C TABLET PO SCH (09:17)
[2017-08-08] MEDS: SEVELAMER CARBONATE 800 MG TABLET PO SCH ×3 (09:18→17:35)
[2017-08-08] MEDS: ERGOCALCIFEROL 50000UNITS CAPSULE PO SCH (09:33)
[2017-08-08] MEDS: LIDOCAINE 5% PATCH TOP SCH (09:34)
[2017-08-08 11:35] VITALS: BP 145/61
[2017-08-08] MEDS ORDERED: DIPHENHYDRAMINE 25MG CAPSULE PO SCH (13:45)
[2017-08-08] MEDS: BISACODYL 10MG SUPP PR SCH (15:16)
[2017-08-08] MEDS: DORZOLAMIDE 2% OPHTH 10 ML BOTTLE BOTHEYE SCH ×2 (15:16→21:18)
[2017-08-08] MEDS: CINACALCET HCL 30MG TABLET PO SCH (17:35)
[2017-08-08 20:00] VITALS: BP 131/67
[2017-08-08] MEDS: LOSARTAN POTASSIUM 100 MG TABLET PO SCH (21:17)
[2017-08-08] MEDS: POLYETHYLENE GLYCOL 3350 (17GM) 1 DOSE PACK PO SCH (21:17)
[2017-08-08] MEDS: INSULIN DETEMIR UD 100 UNITS/ML SYR SUBCUT SCH (22:00)
[2017-08-09] MEDS: ZOLPIDEM TARTRATE 5MG TABLET PO PRN ×2 (01:58→22:48)
[2017-08-09] MEDS: BLOOD SUGAR DIAGNOSTIC STRIP TEST SCH ×4 (05:51→22:49)
[2017-08-09] MEDS: INSULIN LISPRO 100 UNITS/ML SUBCUT SCH ×3 (06:00→18:32)
[2017-08-09] MEDS: DORZOLAMIDE 2% OPHTH 10 ML BOTTLE BOTHEYE SCH ×3 (06:19→21:07)
[2017-08-09] MEDS: GABAPENTIN 100MG CAPSULE PO SCH (06:20)
[2017-08-09] MEDS: BRIMONIDINE 0.2% OPHTH DROPS 5ML BOTHEYE SCH ×3 (06:20→21:07)
[2017-08-09] MEDS: LEVOTHYROXINE SODIUM 25MCG TABLET PO SCH (06:20)
[2017-08-09 08:00] VITALS: BP 147/79
[2017-08-09] MEDS: BISACODYL 10MG SUPP PR SCH (09:00)
[2017-08-09] MEDS: FOLIC ACID/VITAMIN B COMP W-C TABLET PO SCH (09:25)
[2017-08-09] MEDS: DOCUSATE SODIUM 100MG CAPSULE PO SCH ×2 (09:25→17:00)
[2017-08-09] MEDS: HYDRALAZINE HCL 50MG TABLET PO SCH ×2 (09:26→21:06)
[2017-08-09] MEDS: SEVELAMER CARBONATE 800 MG TABLET PO SCH ×3 (09:26→17:00)
[2017-08-09] MEDS: AMLODIPINE 10MG TABLET PO SCH (09:27)
[2017-08-09] MEDS: LIDOCAINE 5% PATCH TOP SCH ×2 (09:29→11:15)
[2017-08-09] MEDS: HYDROCODONE/ACETAMINOPHEN 5/325MG TABLET PO PRN ×2 (09:29→18:18)
[2017-08-09] MEDS: GABAPENTIN 300MG CAPSULE PO SCH ×2 (13:10→21:06)
[2017-08-09] MEDS: CINACALCET HCL 30MG TABLET PO SCH (18:17)
[2017-08-09 20:00] VITALS: BP 167/72
[2017-08-09] MEDS: POLYETHYLENE GLYCOL 3350 (17GM) 1 DOSE PACK PO SCH (21:00)
[2017-08-09] MEDS: LOSARTAN POTASSIUM 100 MG TABLET PO SCH (21:06)
[2017-08-09] MEDS: INSULIN DETEMIR UD 100 UNITS/ML SYR SUBCUT SCH (21:29)
[2017-08-10] MEDS: INSULIN LISPRO 100 UNITS/ML SUBCUT SCH ×4 (06:00→16:58)
[2017-08-10] MEDS: LEVOTHYROXINE SODIUM 25MCG TABLET PO SCH (06:35)
[2017-08-10] MEDS: BLOOD SUGAR DIAGNOSTIC STRIP TEST SCH ×3 (06:35→16:56)
[2017-08-10] MEDS: GABAPENTIN 300MG CAPSULE PO SCH ×3 (06:35→21:42)
[2017-08-10] MEDS: DORZOLAMIDE 2% OPHTH 10 ML BOTTLE BOTHEYE SCH ×3 (06:35→21:43)
[2017-08-10] MEDS: BRIMONIDINE 0.2% OPHTH DROPS 5ML BOTHEYE SCH ×3 (06:35→21:45)
[2017-08-10 08:00] VITALS: BP 153/79
[2017-08-10 08:59] LABS: T4 FREE 0.89 ng/dL (0.76-1.46)
[2017-08-10] MEDS: DOCUSATE SODIUM 100MG CAPSULE PO SCH ×2 (09:00→16:57)
[2017-08-10] MEDS: BISACODYL 10MG SUPP PR SCH (09:00)
[2017-08-10] MEDS: FOLIC ACID/VITAMIN B COMP W-C TABLET PO SCH (09:27)
[2017-08-10] MEDS: SEVELAMER CARBONATE 800 MG TABLET PO SCH ×3 (09:27→16:59)
[2017-08-10] MEDS: HYDRALAZINE HCL 50MG TABLET PO SCH ×2 (09:27→21:47)
[2017-08-10] MEDS: AMLODIPINE 10MG TABLET PO SCH (09:28)
[2017-08-10] MEDS: LIDOCAINE 5% PATCH TOP SCH ×2 (09:29)
[2017-08-10] MEDS: CINACALCET HCL 30MG TABLET PO SCH (16:59)
[2017-08-10 20:00] VITALS: BP 137/65
[2017-08-10] MEDS: LOSARTAN POTASSIUM 100 MG TABLET PO SCH (21:00)
[2017-08-10] MEDS: POLYETHYLENE GLYCOL 3350 (17GM) 1 DOSE PACK PO SCH (21:00)
[2017-08-10] MEDS: ZOLPIDEM TARTRATE 5MG TABLET PO PRN (21:42)
[2017-08-10] MEDS: BENZOCAINE (ORAJEL) PASTE MM PRN (21:42)
[2017-08-10] MEDS: INSULIN DETEMIR UD 100 UNITS/ML SYR SUBCUT SCH (21:55)
[2017-08-11] MEDS: BLOOD SUGAR DIAGNOSTIC STRIP TEST SCH ×4 (00:35→17:57)
[2017-08-11] MEDS: ACETAMINOPHEN 325MG TABLET PO PRN (04:47)
[2017-08-11] MEDS: INSULIN LISPRO 100 UNITS/ML SUBCUT SCH ×4 (06:00→17:56)
[2017-08-11] MEDS: BRIMONIDINE 0.2% OPHTH DROPS 5ML BOTHEYE SCH ×3 (06:10→22:02)
[2017-08-11] MEDS: LEVOTHYROXINE SODIUM 50MCG TABLET PO SCH (06:10)
[2017-08-11] MEDS: GABAPENTIN 300MG CAPSULE PO SCH ×3 (06:10→22:00)
[2017-08-11 06:54] LABS: BASOPHILS % 0.9 % (0.0-2.0); EOSINOPHILS % 11.4 % (0.0-5.0); HEMATOCRIT. 34.4 % (36.0-48.0); HEMOGLOBIN. 11.3 g/dL (12.0-16.0); LYMPHOCYTES % 17.9 % (20.0-50.0); MEAN CORPUSCULAR HEMOGLOBIN 30.6 pg (28.0-32.0); MEAN CORPUSCULAR VOLUME 92.7 fL (81.0-99.0); MEAN PLATELET VOLUME 9.3 fl (7.4-10.4); MONOCYTES % 11.3 % (2.0-8.0); NEUTROPHILS % 58.5 % (40.0-76.0); PLATELET 164 x1000/uL (130-400); RED BLOOD CELL COUNT 3.71 mill/uL (4.2-5.4); RED CELL DISTRIBUTION WIDTH 17.2 % (11.6-14.6)
[2017-08-11 07:06] LABS: PHOSPHORUS 4.1 mg/dL (2.5-4.9)
[2017-08-11 08:00] VITALS: BP 142/76
[2017-08-11] MEDS: DOCUSATE SODIUM 100MG CAPSULE PO SCH ×2 (10:04→17:52)
[2017-08-11] MEDS: FOLIC ACID/VITAMIN B COMP W-C TABLET PO SCH (10:05)
[2017-08-11] MEDS: SEVELAMER CARBONATE 800 MG TABLET PO SCH ×3 (10:06→17:52)
[2017-08-11] MEDS: LIDOCAINE 5% PATCH TOP SCH ×2 (10:07→10:08)
[2017-08-11] MEDS: AMLODIPINE 10MG TABLET PO SCH (10:17)
[2017-08-11] MEDS: BISACODYL 10MG SUPP PR SCH (10:18)
[2017-08-11] MEDS: HYDRALAZINE HCL 50MG TABLET PO SCH ×2 (10:18→22:01)
[2017-08-11] MEDS: DORZOLAMIDE 2% OPHTH 10 ML BOTTLE BOTHEYE SCH ×3 (10:20→22:02)
[2017-08-11 15:45] VITALS: BP 168/87
[2017-08-11] MEDS: HYDROCODONE/ACETAMINOPHEN 5/325MG TABLET PO PRN (15:48)
[2017-08-11] MEDS: CINACALCET HCL 30MG TABLET PO SCH (17:52)
[2017-08-11 20:00] VITALS: BP 142/72
[2017-08-11] MEDS: LOSARTAN POTASSIUM 100 MG TABLET PO SCH (21:00)
[2017-08-11] MEDS: ZOLPIDEM TARTRATE 5MG TABLET PO PRN (22:00)
[2017-08-11] MEDS: POLYETHYLENE GLYCOL 3350 (17GM) 1 DOSE PACK PO SCH (22:00)
[2017-08-11] MEDS: INSULIN DETEMIR UD 100 UNITS/ML SYR SUBCUT SCH (22:09)
[2017-08-12] MEDS: BLOOD SUGAR DIAGNOSTIC STRIP TEST SCH ×5 (00:23→23:40)
[2017-08-12] MEDS: INSULIN LISPRO 100 UNITS/ML SUBCUT SCH ×5 (00:34→23:43)
[2017-08-12] MEDS: GABAPENTIN 300MG CAPSULE PO SCH ×3 (06:08→21:50)
[2017-08-12] MEDS: LEVOTHYROXINE SODIUM 50MCG TABLET PO SCH (06:08)
[2017-08-12] MEDS: BRIMONIDINE 0.2% OPHTH DROPS 5ML BOTHEYE SCH ×3 (06:08→21:50)
[2017-08-12 08:00] VITALS: BP 153/71
[2017-08-12] MEDS: BISACODYL 10MG SUPP PR SCH (09:00)
[2017-08-12] MEDS: SEVELAMER CARBONATE 800 MG TABLET PO SCH ×3 (09:01→17:00)
[2017-08-12] MEDS: FOLIC ACID/VITAMIN B COMP W-C TABLET PO SCH (09:01)
[2017-08-12] MEDS: DOCUSATE SODIUM 100MG CAPSULE PO SCH ×2 (09:01→16:53)
[2017-08-12] MEDS: AMLODIPINE 10MG TABLET PO SCH (09:02)
[2017-08-12] MEDS: DORZOLAMIDE 2% OPHTH 10 ML BOTTLE BOTHEYE SCH ×3 (09:02→23:29)
[2017-08-12] MEDS: DIPHENHYDRAMINE 50MG CAPSULE PO PRN (09:02)
[2017-08-12] MEDS: HYDRALAZINE HCL 50MG TABLET PO SCH ×2 (09:02→23:36)
[2017-08-12] MEDS: LIDOCAINE 5% PATCH TOP SCH ×2 (09:03)
[2017-08-12] MEDS: ASCORBIC ACID 500 MG TABLET PO SCH (15:41)
[2017-08-12] MEDS: ZINC SULFATE 220 MG ( 50 ) CAPSULE PO SCH (15:41)
[2017-08-12] MEDS: CINACALCET HCL 30MG TABLET PO SCH (17:00)
[2017-08-12 20:00] VITALS: BP 152/72
[2017-08-12] MEDS: POLYETHYLENE GLYCOL 3350 (17GM) 1 DOSE PACK PO SCH (21:00)
[2017-08-12] MEDS: LOSARTAN POTASSIUM 100 MG TABLET PO SCH (21:50)
[2017-08-12] MEDS: INSULIN DETEMIR UD 100 UNITS/ML SYR SUBCUT SCH (21:55)
[2017-08-13] MEDS: BRIMONIDINE 0.2% OPHTH DROPS 5ML BOTHEYE SCH ×3 (05:47→22:30)
[2017-08-13] MEDS: LEVOTHYROXINE SODIUM 50MCG TABLET PO SCH (05:48)
[2017-08-13] MEDS: HYDROCODONE/ACETAMINOPHEN 5/325MG TABLET PO PRN (05:48)
[2017-08-13] MEDS: GABAPENTIN 300MG CAPSULE PO SCH ×3 (05:48→23:36)
[2017-08-13] MEDS: BLOOD SUGAR DIAGNOSTIC STRIP TEST SCH ×3 (05:51→17:10)
[2017-08-13] MEDS: INSULIN LISPRO 100 UNITS/ML SUBCUT SCH ×3 (06:00→18:16)
[2017-08-13 06:36] LABS: HEMATOCRIT 33.4 % (36.0-48.0); HEMOGLOBIN 11.2 g/dL (12.0-16.0); MEAN CORPUSCULAR HEMOGLOBIN 30.9 pg (28.0-32.0); MEAN CORPUSCULAR VOLUME 92.4 fL (81.0-99.0); PLATELET 166 x1000/uL (130-400); RED BLOOD CELL COUNT 3.62 mill/uL (4.2-5.4)
[2017-08-13 07:54] VITALS: BP 158/83
[2017-08-13] MEDS: ASCORBIC ACID 500 MG TABLET PO SCH (08:11)
[2017-08-13] MEDS: FOLIC ACID/VITAMIN B COMP W-C TABLET PO SCH (08:11)
[2017-08-13] MEDS: HYDRALAZINE HCL 50MG TABLET PO SCH ×2 (08:12→22:30)
[2017-08-13] MEDS: BISACODYL 10MG SUPP PR SCH (08:12)
[2017-08-13] MEDS: AMLODIPINE 10MG TABLET PO SCH (08:12)
[2017-08-13] MEDS: ZINC SULFATE 220 MG ( 50 ) CAPSULE PO SCH (08:12)
[2017-08-13] MEDS: SEVELAMER CARBONATE 800 MG TABLET PO SCH ×3 (08:12→18:13)
[2017-08-13] MEDS: DOCUSATE SODIUM 100MG CAPSULE PO SCH ×2 (08:12→17:00)
[2017-08-13] MEDS: LIDOCAINE 5% PATCH TOP SCH ×2 (08:13→08:15)
[2017-08-13] MEDS: DORZOLAMIDE 2% OPHTH 10 ML BOTTLE BOTHEYE SCH ×3 (08:14→23:36)
[2017-08-13] MEDS: DIPHENHYDRAMINE 50MG CAPSULE PO PRN (17:21)
[2017-08-13] MEDS: CINACALCET HCL 30MG TABLET PO SCH (18:13)
[2017-08-13 20:00] VITALS: BP 155/69
[2017-08-13] MEDS: POLYETHYLENE GLYCOL 3350 (17GM) 1 DOSE PACK PO SCH (21:00)
[2017-08-13] MEDS: INSULIN DETEMIR UD 100 UNITS/ML SYR SUBCUT SCH (22:00)
[2017-08-13] MEDS: LOSARTAN POTASSIUM 100 MG TABLET PO SCH (22:29)
[2017-08-14] MEDS: GABAPENTIN 300MG CAPSULE PO SCH ×3 (05:50→22:25)
[2017-08-14] MEDS: BRIMONIDINE 0.2% OPHTH DROPS 5ML BOTHEYE SCH ×3 (05:50→22:25)
[2017-08-14] MEDS: INSULIN LISPRO 100 UNITS/ML SUBCUT SCH ×5 (05:51→23:58)
[2017-08-14] MEDS: BLOOD SUGAR DIAGNOSTIC STRIP TEST SCH ×5 (05:52→23:48)
[2017-08-14] MEDS: DORZOLAMIDE 2% OPHTH 10 ML BOTTLE BOTHEYE SCH ×3 (06:33→23:52)
[2017-08-14] MEDS: LEVOTHYROXINE SODIUM 50MCG TABLET PO SCH (06:33)
[2017-08-14 07:00] VITALS: BP 138/70
[2017-08-14] MEDS: BISACODYL 10MG SUPP PR SCH (08:43)
[2017-08-14] MEDS: HYDRALAZINE HCL 50MG TABLET PO SCH ×2 (08:45→22:25)
[2017-08-14] MEDS: DOCUSATE SODIUM 100MG CAPSULE PO SCH ×2 (08:45→16:42)
[2017-08-14] MEDS: ZINC SULFATE 220 MG ( 50 ) CAPSULE PO SCH (08:45)
[2017-08-14] MEDS: SEVELAMER CARBONATE 800 MG TABLET PO SCH ×3 (08:45→16:42)
[2017-08-14] MEDS: FOLIC ACID/VITAMIN B COMP W-C TABLET PO SCH (08:45)
[2017-08-14] MEDS: AMLODIPINE 10MG TABLET PO SCH (08:45)
[2017-08-14] MEDS: ASCORBIC ACID 500 MG TABLET PO SCH (08:46)
[2017-08-14] MEDS: LIDOCAINE 5% PATCH TOP SCH ×2 (08:49)
[2017-08-14] MEDS: CINACALCET HCL 30MG TABLET PO SCH (16:42)
[2017-08-14 20:00] VITALS: BP 145/66
[2017-08-14] MEDS: POLYETHYLENE GLYCOL 3350 (17GM) 1 DOSE PACK PO SCH (21:00)
[2017-08-14] MEDS: INSULIN DETEMIR UD 100 UNITS/ML SYR SUBCUT SCH (22:00)
[2017-08-14] MEDS: LOSARTAN POTASSIUM 100 MG TABLET PO SCH (22:25)
[2017-08-14] MEDS: ZOLPIDEM TARTRATE 5MG TABLET PO PRN (23:50)
[2017-08-15] MEDS: INSULIN LISPRO 100 UNITS/ML SUBCUT SCH ×4 (06:00→23:27)
[2017-08-15] MEDS: BLOOD SUGAR DIAGNOSTIC STRIP TEST SCH ×4 (06:12→23:26)
[2017-08-15] MEDS: BRIMONIDINE 0.2% OPHTH DROPS 5ML BOTHEYE SCH ×3 (06:12→21:26)
[2017-08-15] MEDS: LEVOTHYROXINE SODIUM 50MCG TABLET PO SCH (06:12)
[2017-08-15] MEDS: GABAPENTIN 300MG CAPSULE PO SCH ×3 (06:12→21:26)
[2017-08-15] MEDS: DORZOLAMIDE 2% OPHTH 10 ML BOTTLE BOTHEYE SCH ×3 (06:53→23:26)
[2017-08-15 06:56] LABS: HEMATOCRIT 32.8 % (36.0-48.0); HEMOGLOBIN 10.9 g/dL (12.0-16.0); MEAN CORPUSCULAR HEMOGLOBIN 30.7 pg (28.0-32.0); MEAN CORPUSCULAR VOLUME 92.1 fL (81.0-99.0); PLATELET 178 x1000/uL (130-400); RED BLOOD CELL COUNT 3.56 mill/uL (4.2-5.4); RED CELL DISTRIBUTION WIDTH 16.9 % (11.6-14.6)
[2017-08-15 07:20] LABS: PHOSPHORUS 3.8 mg/dL (2.5-4.9)
[2017-08-15 08:00] VITALS: BP 138/68
[2017-08-15] MEDS: SEVELAMER CARBONATE 800 MG TABLET PO SCH ×3 (08:51→16:52)
[2017-08-15] MEDS: ERGOCALCIFEROL 50000UNITS CAPSULE PO SCH (08:51)
[2017-08-15] MEDS: ZINC SULFATE 220 MG ( 50 ) CAPSULE PO SCH (08:51)
[2017-08-15] MEDS: FOLIC ACID/VITAMIN B COMP W-C TABLET PO SCH (08:51)
[2017-08-15] MEDS: ASCORBIC ACID 500 MG TABLET PO SCH (08:51)
[2017-08-15] MEDS: LIDOCAINE 5% PATCH TOP SCH ×2 (08:52)
[2017-08-15] MEDS: BISACODYL 10MG SUPP PR SCH (09:00)
[2017-08-15] MEDS: AMLODIPINE 10MG TABLET PO SCH (09:00)
[2017-08-15] MEDS: DOCUSATE SODIUM 100MG CAPSULE PO SCH ×2 (09:00→16:28)
[2017-08-15] MEDS: HYDRALAZINE HCL 50MG TABLET PO SCH ×2 (09:00→21:26)
[2017-08-15] MEDS: ACETAMINOPHEN 325MG TABLET PO PRN (10:16)
[2017-08-15] MEDS: HYDROCODONE/ACETAMINOPHEN 5/325MG TABLET PO PRN (12:59)
[2017-08-15] MEDS: CINACALCET HCL 30MG TABLET PO SCH (16:52)
[2017-08-15 20:00] VITALS: BP 133/57
[2017-08-15] MEDS: POLYETHYLENE GLYCOL 3350 (17GM) 1 DOSE PACK PO SCH (21:00)
[2017-08-15] MEDS ORDERED: EPOETIN ALFA 4000UNITS/ML VIAL SUBCUT SCH (21:00)
[2017-08-15] MEDS: LOSARTAN POTASSIUM 100 MG TABLET PO SCH (21:26)
[2017-08-15] MEDS: INSULIN DETEMIR UD 100 UNITS/ML SYR SUBCUT SCH (21:26)
[2017-08-15] MEDS: ZOLPIDEM TARTRATE 5MG TABLET PO PRN (23:26)
[2017-08-16] MEDS: INSULIN LISPRO 100 UNITS/ML SUBCUT SCH ×4 (06:00→23:09)
[2017-08-16] MEDS: GABAPENTIN 300MG CAPSULE PO SCH ×3 (06:43→21:53)
[2017-08-16] MEDS: BRIMONIDINE 0.2% OPHTH DROPS 5ML BOTHEYE SCH ×3 (06:43→21:53)
[2017-08-16] MEDS: BLOOD SUGAR DIAGNOSTIC STRIP TEST SCH ×4 (06:43→23:08)
[2017-08-16] MEDS: LEVOTHYROXINE SODIUM 50MCG TABLET PO SCH (06:43)
[2017-08-16 07:00] VITALS: BP 140/70
[2017-08-16] MEDS: SEVELAMER CARBONATE 800 MG TABLET PO SCH ×3 (08:20→16:58)
[2017-08-16] MEDS: ZINC SULFATE 220 MG ( 50 ) CAPSULE PO SCH (08:21)
[2017-08-16] MEDS: DOCUSATE SODIUM 100MG CAPSULE PO SCH ×2 (08:21→16:58)
[2017-08-16] MEDS: AMLODIPINE 10MG TABLET PO SCH (08:21)
[2017-08-16] MEDS: ASCORBIC ACID 500 MG TABLET PO SCH (08:21)
[2017-08-16] MEDS: FOLIC ACID/VITAMIN B COMP W-C TABLET PO SCH (08:21)
[2017-08-16] MEDS: HYDRALAZINE HCL 50MG TABLET PO SCH ×2 (08:21→21:53)
[2017-08-16] MEDS: DORZOLAMIDE 2% OPHTH 10 ML BOTTLE BOTHEYE SCH ×3 (08:22→23:08)
[2017-08-16] MEDS: LIDOCAINE 5% PATCH TOP SCH ×2 (08:23→08:24)
[2017-08-16] MEDS: BISACODYL 10MG SUPP PR SCH (08:24)
[2017-08-16 12:30] VITALS: BP 145/64
[2017-08-16] MEDS: HYDROCODONE/ACETAMINOPHEN 5/325MG TABLET PO PRN (12:37)
[2017-08-16] MEDS: DIPHENHYDRAMINE 50MG CAPSULE PO PRN (16:23)
[2017-08-16] MEDS: CINACALCET HCL 30MG TABLET PO SCH (16:58)
[2017-08-16 20:00] VITALS: BP 129/59
[2017-08-16] MEDS: POLYETHYLENE GLYCOL 3350 (17GM) 1 DOSE PACK PO SCH (21:00)
[2017-08-16] MEDS: LOSARTAN POTASSIUM 100 MG TABLET PO SCH (21:53)
[2017-08-16] MEDS: INSULIN DETEMIR UD 100 UNITS/ML SYR SUBCUT SCH (22:00)
[2017-08-17] MEDS: INSULIN LISPRO 100 UNITS/ML SUBCUT SCH ×4 (06:00→23:23)
[2017-08-17] MEDS: GABAPENTIN 300MG CAPSULE PO SCH ×3 (06:19→21:44)
[2017-08-17] MEDS: LEVOTHYROXINE SODIUM 50MCG TABLET PO SCH (06:19)
[2017-08-17] MEDS: BRIMONIDINE 0.2% OPHTH DROPS 5ML BOTHEYE SCH ×3 (06:20→21:44)
[2017-08-17] MEDS: BLOOD SUGAR DIAGNOSTIC STRIP TEST SCH ×4 (06:25→23:22)
[2017-08-17] MEDS: DORZOLAMIDE 2% OPHTH 10 ML BOTTLE BOTHEYE SCH ×3 (07:13→23:22)
[2017-08-17 07:41] LABS: HEMATOCRIT. 30.9 % (36.0-48.0); HEMOGLOBIN. 10.2 g/dL (12.0-16.0); MEAN CORPUSCULAR HEMOGLOBIN 30.5 pg (28.0-32.0); MEAN CORPUSCULAR VOLUME 91.8 fL (81.0-99.0); MEAN PLATELET VOLUME 9.7 fl (7.4-10.4); PLATELET 189 x1000/uL (130-400); RED BLOOD CELL COUNT 3.36 mill/uL (4.2-5.4)
[2017-08-17 08:00] VITALS: BP 133/69
[2017-08-17 08:01] LABS: CARBON DIOXIDE 28 mEq/L (21-32); CHLORIDE 95 mEq/L (98-107); PHOSPHORUS 4.2 mg/dL (2.5-4.9)
[2017-08-17] MEDS: FOLIC ACID/VITAMIN B COMP W-C TABLET PO SCH (08:46)
[2017-08-17] MEDS: ASCORBIC ACID 500 MG TABLET PO SCH (08:46)
[2017-08-17] MEDS: HYDRALAZINE HCL 50MG TABLET PO SCH ×2 (08:46→20:55)
[2017-08-17] MEDS: DOCUSATE SODIUM 100MG CAPSULE PO SCH ×2 (08:46→17:31)
[2017-08-17] MEDS: SEVELAMER CARBONATE 800 MG TABLET PO SCH ×3 (08:47→17:31)
[2017-08-17] MEDS: AMLODIPINE 10MG TABLET PO SCH (08:47)
[2017-08-17] MEDS: ZINC SULFATE 220 MG ( 50 ) CAPSULE PO SCH (08:47)
[2017-08-17] MEDS: LIDOCAINE 5% PATCH TOP SCH ×2 (08:48→08:49)
[2017-08-17] MEDS: BISACODYL 10MG SUPP PR SCH (08:49)
[2017-08-17] MEDS: BENZOCAINE (ORAJEL) PASTE MM PRN (08:58)
[2017-08-17 10:56] LABS: PLATELET ESTIMATE NORMAL
[2017-08-17 11:20] VITALS: BP 136/61
[2017-08-17] MEDS: HYDROCODONE/ACETAMINOPHEN 5/325MG TABLET PO PRN ×2 (11:24→20:59)
[2017-08-17] MEDS: CINACALCET HCL 30MG TABLET PO SCH (17:31)
[2017-08-17 20:00] VITALS: BP 111/66
[2017-08-17] MEDS: LOSARTAN POTASSIUM 100 MG TABLET PO SCH (20:55)
[2017-08-17] MEDS: POLYETHYLENE GLYCOL 3350 (17GM) 1 DOSE PACK PO SCH (20:56)
[2017-08-17] MEDS: INSULIN DETEMIR UD 100 UNITS/ML SYR SUBCUT SCH (21:44)
[2017-08-17] MEDS: ZOLPIDEM TARTRATE 5MG TABLET PO PRN (23:22)
[2017-08-18] MEDS: GABAPENTIN 300MG CAPSULE PO SCH ×2 (05:17→13:14)
[2017-08-18] MEDS: BRIMONIDINE 0.2% OPHTH DROPS 5ML BOTHEYE SCH ×2 (05:17→13:14)
[2017-08-18] MEDS: BLOOD SUGAR DIAGNOSTIC STRIP TEST SCH ×3 (05:18→17:20)
[2017-08-18] MEDS: INSULIN LISPRO 100 UNITS/ML SUBCUT SCH ×3 (05:18→17:20)
[2017-08-18] MEDS: BENZOCAINE (ORAJEL) PASTE MM PRN (05:22)
[2017-08-18] MEDS: DORZOLAMIDE 2% OPHTH 10 ML BOTTLE BOTHEYE SCH ×2 (06:33→16:24)
[2017-08-18] MEDS: LEVOTHYROXINE SODIUM 50MCG TABLET PO SCH (06:33)
[2017-08-18 08:00] VITALS: BP 140/63
[2017-08-18] MEDS ORDERED: BISACODYL 10MG SUPP PR NR (08:00)
[2017-08-18] MEDS: HYDRALAZINE HCL 50MG TABLET PO SCH (09:00)
[2017-08-18] MEDS: AMLODIPINE 10MG TABLET PO SCH (09:00)
[2017-08-18] MEDS: FOLIC ACID/VITAMIN B COMP W-C TABLET PO SCH (09:09)
[2017-08-18] MEDS: SEVELAMER CARBONATE 800 MG TABLET PO SCH ×3 (09:09→16:28)
[2017-08-18] MEDS: ZINC SULFATE 220 MG ( 50 ) CAPSULE PO SCH (09:09)
[2017-08-18] MEDS: ASCORBIC ACID 500 MG TABLET PO SCH ×2 (09:09→16:30)
[2017-08-18] MEDS: DOCUSATE SODIUM 100MG CAPSULE PO SCH ×2 (09:09→16:29)
[2017-08-18] MEDS: LIDOCAINE 5% PATCH TOP SCH ×2 (09:10→09:11)
[2017-08-18] MEDS: HYDROCODONE/ACETAMINOPHEN 5/325MG TABLET PO PRN ×2 (11:32→16:29)
[2017-08-18] MEDS: BISACODYL 10MG SUPP PR SCH (12:25)
[2017-08-18] MEDS: CINACALCET HCL 30MG TABLET PO SCH (16:30)
[2017-08-18 20:00] VITALS: BP 142/70
[2017-08-18] MEDS: DIPHENHYDRAMINE 50MG CAPSULE PO PRN (20:27)
[2017-08-18] MEDS: LOSARTAN POTASSIUM 100 MG TABLET PO SCH (21:00)
[2017-08-18] MEDS: POLYETHYLENE GLYCOL 3350 (17GM) 1 DOSE PACK PO SCH (21:00)
[2017-08-18] MEDS: INSULIN DETEMIR UD 100 UNITS/ML SYR SUBCUT SCH (22:00)
[2017-08-19] MEDS: BLOOD SUGAR DIAGNOSTIC STRIP TEST SCH ×5 (01:00→23:22)
[2017-08-19] MEDS: DORZOLAMIDE 2% OPHTH 10 ML BOTTLE BOTHEYE SCH ×4 (01:25→23:22)
[2017-08-19] MEDS: GABAPENTIN 300MG CAPSULE PO SCH ×4 (01:25→21:48)
[2017-08-19] MEDS: BRIMONIDINE 0.2% OPHTH DROPS 5ML BOTHEYE SCH ×4 (01:25→21:49)
[2017-08-19] MEDS: HYDRALAZINE HCL 50MG TABLET PO SCH ×3 (01:25→20:58)
[2017-08-19] MEDS: INSULIN LISPRO 100 UNITS/ML SUBCUT SCH ×5 (06:00→23:22)
[2017-08-19] MEDS: LEVOTHYROXINE SODIUM 50MCG TABLET PO SCH (06:48)
[2017-08-19 07:08] LABS: HEMATOCRIT. 30.3 % (36.0-48.0); HEMOGLOBIN. 10.3 g/dL (12.0-16.0); MEAN CORPUSCULAR HEMOGLOBIN 31.2 pg (28.0-32.0); MEAN CORPUSCULAR VOLUME 91.6 fL (81.0-99.0); MEAN PLATELET VOLUME 9.8 fl (7.4-10.4); PLATELET 182 x1000/uL (130-400); RED BLOOD CELL COUNT 3.31 mill/uL (4.2-5.4)
[2017-08-19 08:00] VITALS: BP 139/64
[2017-08-19] MEDS: DOCUSATE SODIUM 100MG CAPSULE PO SCH ×3 (08:51→17:57)
[2017-08-19] MEDS: ZINC SULFATE 220 MG ( 50 ) CAPSULE PO SCH (08:51)
[2017-08-19] MEDS: ASCORBIC ACID 500 MG TABLET PO SCH ×2 (08:51→17:57)
[2017-08-19] MEDS: SEVELAMER CARBONATE 800 MG TABLET PO SCH ×3 (08:51→17:57)
[2017-08-19] MEDS: AMLODIPINE 10MG TABLET PO SCH (08:51)
[2017-08-19] MEDS: FOLIC ACID/VITAMIN B COMP W-C TABLET PO SCH (08:51)
[2017-08-19] MEDS: LIDOCAINE 5% PATCH TOP SCH ×2 (08:57)
[2017-08-19] MEDS: BISACODYL 10MG SUPP PR SCH ×2 (09:00→21:58)
[2017-08-19] MEDS: HYDROCODONE/ACETAMINOPHEN 5/325MG TABLET PO PRN ×2 (09:19→20:58)
[2017-08-19 13:15] LABS: PLATELET ESTIMATE NORMAL
[2017-08-19] MEDS: CINACALCET HCL 30MG TABLET PO SCH (17:57)
[2017-08-19 20:00] VITALS: BP 134/59
[2017-08-19] MEDS: LOSARTAN POTASSIUM 100 MG TABLET PO SCH (20:58)
[2017-08-19] MEDS: POLYETHYLENE GLYCOL 3350 (17GM) 1 DOSE PACK PO SCH (21:00)
[2017-08-19] MEDS: INSULIN DETEMIR UD 100 UNITS/ML SYR SUBCUT SCH (21:49)
[2017-08-19] MEDS: ZOLPIDEM TARTRATE 5MG TABLET PO PRN (23:21)
[2017-08-20] MEDS: HYDROCODONE/ACETAMINOPHEN 5/325MG TABLET PO PRN ×3 (02:14→17:19)
[2017-08-20] MEDS: INSULIN LISPRO 100 UNITS/ML SUBCUT SCH ×3 (05:31→18:00)
[2017-08-20] MEDS: BLOOD SUGAR DIAGNOSTIC STRIP TEST SCH ×3 (05:31→17:30)
[2017-08-20] MEDS: GABAPENTIN 300MG CAPSULE PO SCH ×3 (05:31→21:07)
[2017-08-20] MEDS: BRIMONIDINE 0.2% OPHTH DROPS 5ML BOTHEYE SCH ×3 (05:31→21:08)
[2017-08-20] MEDS: DORZOLAMIDE 2% OPHTH 10 ML BOTTLE BOTHEYE SCH ×3 (06:38→23:30)
[2017-08-20] MEDS: LEVOTHYROXINE SODIUM 50MCG TABLET PO SCH (06:38)
[2017-08-20 06:57] LABS: HEMOGLOBIN 9.6 g/dL (12.0-16.0); MEAN CORPUSCULAR HEMOGLOBIN 30.6 pg (28.0-32.0); MEAN CORPUSCULAR VOLUME 91.8 fL (81.0-99.0); PLATELET 177 x1000/uL (130-400); RED BLOOD CELL COUNT 3.16 mill/uL (4.2-5.4); RED CELL DISTRIBUTION WIDTH 17.7 % (11.6-14.6)
[2017-08-20 08:00] VITALS: BP 131/71
[2017-08-20] MEDS: LIDOCAINE 5% PATCH TOP SCH ×2 (08:07→08:09)
[2017-08-20] MEDS: ASCORBIC ACID 500 MG TABLET PO SCH ×2 (08:08→17:29)
[2017-08-20] MEDS: ZINC SULFATE 220 MG ( 50 ) CAPSULE PO SCH (08:08)
[2017-08-20] MEDS: FOLIC ACID/VITAMIN B COMP W-C TABLET PO SCH (08:08)
[2017-08-20] MEDS: SEVELAMER CARBONATE 800 MG TABLET PO SCH ×3 (08:08→17:28)
[2017-08-20] MEDS: BISACODYL 10MG SUPP PR SCH ×2 (08:09→11:34)
[2017-08-20] MEDS: DOCUSATE SODIUM 100MG CAPSULE PO SCH ×2 (08:10→17:00)
[2017-08-20] MEDS: AMLODIPINE 10MG TABLET PO SCH (08:10)
[2017-08-20] MEDS: HYDRALAZINE HCL 50MG TABLET PO SCH ×2 (08:10→21:07)
[2017-08-20] MEDS: CINACALCET HCL 30MG TABLET PO SCH (17:29)
[2017-08-20 20:00] VITALS: BP 151/71
[2017-08-20] MEDS: POLYETHYLENE GLYCOL 3350 (17GM) 1 DOSE PACK PO SCH (21:00)
[2017-08-20] MEDS: LOSARTAN POTASSIUM 100 MG TABLET PO SCH (21:07)
[2017-08-20] MEDS: INSULIN DETEMIR UD 100 UNITS/ML SYR SUBCUT SCH (21:08)
[2017-08-21] MEDS: BLOOD SUGAR DIAGNOSTIC STRIP TEST SCH ×4 (00:03→17:17)
[2017-08-21] MEDS: INSULIN LISPRO 100 UNITS/ML SUBCUT SCH ×4 (00:07→18:16)
[2017-08-21] MEDS: GABAPENTIN 300MG CAPSULE PO SCH ×3 (05:57→21:51)
[2017-08-21] MEDS: BRIMONIDINE 0.2% OPHTH DROPS 5ML BOTHEYE SCH ×3 (05:58→21:52)
[2017-08-21] MEDS: HYDROCODONE/ACETAMINOPHEN 5/325MG TABLET PO PRN ×2 (05:58→12:14)
[2017-08-21] MEDS: LEVOTHYROXINE SODIUM 50MCG TABLET PO SCH (06:28)
[2017-08-21] MEDS: DORZOLAMIDE 2% OPHTH 10 ML BOTTLE BOTHEYE SCH ×2 (06:28→16:07)
[2017-08-21 08:00] VITALS: BP 122/60
[2017-08-21] MEDS: DOCUSATE SODIUM 100MG CAPSULE PO SCH ×3 (09:00→17:00)
[2017-08-21] MEDS: BISACODYL 10MG SUPP PR SCH ×2 (09:00→13:57)
[2017-08-21] MEDS: ASCORBIC ACID 500 MG TABLET PO SCH ×2 (09:04→18:15)
[2017-08-21] MEDS: ZINC SULFATE 220 MG ( 50 ) CAPSULE PO SCH (09:04)
[2017-08-21] MEDS: FOLIC ACID/VITAMIN B COMP W-C TABLET PO SCH (09:04)
[2017-08-21] MEDS: AMLODIPINE 10MG TABLET PO SCH (09:04)
[2017-08-21] MEDS: SEVELAMER CARBONATE 800 MG TABLET PO SCH ×3 (09:05→18:15)
[2017-08-21] MEDS: HYDRALAZINE HCL 50MG TABLET PO SCH ×2 (09:05→21:51)
[2017-08-21] MEDS: LIDOCAINE 5% PATCH TOP SCH ×2 (09:07)
[2017-08-21 13:39] VITALS: BP 151/70
[2017-08-21] MEDS: CINACALCET HCL 30MG TABLET PO SCH (18:15)
[2017-08-21 20:00] VITALS: BP 150/74
[2017-08-21] MEDS: POLYETHYLENE GLYCOL 3350 (17GM) 1 DOSE PACK PO SCH (21:00)
[2017-08-21] MEDS: LOSARTAN POTASSIUM 100 MG TABLET PO SCH (21:51)
[2017-08-21] MEDS: INSULIN DETEMIR UD 100 UNITS/ML SYR SUBCUT SCH (21:54)
[2017-08-22] MEDS: HYDROCODONE/ACETAMINOPHEN 5/325MG TABLET PO PRN ×2 (00:01→07:53)
[2017-08-22] MEDS: DORZOLAMIDE 2% OPHTH 10 ML BOTTLE BOTHEYE SCH ×4 (00:01→22:59)
[2017-08-22] MEDS: BLOOD SUGAR DIAGNOSTIC STRIP TEST SCH ×4 (00:04→16:27)
[2017-08-22] MEDS: INSULIN LISPRO 100 UNITS/ML SUBCUT SCH ×4 (06:00→17:37)
[2017-08-22] MEDS: LEVOTHYROXINE SODIUM 50MCG TABLET PO SCH (06:36)
[2017-08-22] MEDS: GABAPENTIN 300MG CAPSULE PO SCH ×3 (06:36→22:58)
[2017-08-22] MEDS: BRIMONIDINE 0.2% OPHTH DROPS 5ML BOTHEYE SCH ×3 (06:37→22:59)
[2017-08-22 08:00] VITALS: BP 147/75
[2017-08-22] MEDS: BISACODYL 10MG SUPP PR SCH (09:00)
[2017-08-22] MEDS: AMLODIPINE 10MG TABLET PO SCH (09:00)
[2017-08-22] MEDS: DOCUSATE SODIUM 100MG CAPSULE PO SCH ×2 (09:00→17:35)
[2017-08-22] MEDS: HYDRALAZINE HCL 50MG TABLET PO SCH ×2 (09:00→22:58)
[2017-08-22] MEDS: ERGOCALCIFEROL 50000UNITS CAPSULE PO SCH (09:28)
[2017-08-22] MEDS: SEVELAMER CARBONATE 800 MG TABLET PO SCH ×3 (09:28→17:35)
[2017-08-22] MEDS: ZINC SULFATE 220 MG ( 50 ) CAPSULE PO SCH (09:28)
[2017-08-22] MEDS: ASCORBIC ACID 500 MG TABLET PO SCH ×2 (09:28→17:36)
[2017-08-22] MEDS: FOLIC ACID/VITAMIN B COMP W-C TABLET PO SCH (09:28)
[2017-08-22] MEDS: LIDOCAINE 5% PATCH TOP SCH ×2 (09:30→09:31)
[2017-08-22] MEDS: DIPHENHYDRAMINE 50MG CAPSULE PO PRN (16:37)
[2017-08-22] MEDS: CINACALCET HCL 30MG TABLET PO SCH (17:35)
[2017-08-22 20:00] VITALS: BP 138/62
[2017-08-22] MEDS: POLYETHYLENE GLYCOL 3350 (17GM) 1 DOSE PACK PO SCH (21:00)
[2017-08-22] MEDS: LOSARTAN POTASSIUM 100 MG TABLET PO SCH (21:00)
[2017-08-22] MEDS: INSULIN DETEMIR UD 100 UNITS/ML SYR SUBCUT SCH (22:00)
[2017-08-22] MEDS: ZOLPIDEM TARTRATE 5MG TABLET PO PRN (22:57)
[2017-08-23] MEDS: LEVOTHYROXINE SODIUM 50MCG TABLET PO SCH (06:04)
[2017-08-23] MEDS: GABAPENTIN 300MG CAPSULE PO SCH ×3 (06:04→22:36)
[2017-08-23] MEDS: HYDROCODONE/ACETAMINOPHEN 5/325MG TABLET PO PRN ×3 (06:50→22:48)
[2017-08-23 08:00] VITALS: BP 152/85
[2017-08-23] MEDS: BISACODYL 10MG SUPP PR SCH ×2 (09:00→14:47)
[2017-08-23] MEDS: ZINC SULFATE 220 MG ( 50 ) CAPSULE PO SCH (10:09)
[2017-08-23] MEDS: FOLIC ACID/VITAMIN B COMP W-C TABLET PO SCH (10:09)
[2017-08-23] MEDS: SEVELAMER CARBONATE 800 MG TABLET PO SCH ×3 (10:09→17:16)
[2017-08-23] MEDS: DOCUSATE SODIUM 100MG CAPSULE PO SCH ×2 (10:09→17:16)
[2017-08-23] MEDS: ASCORBIC ACID 500 MG TABLET PO SCH ×2 (10:09→17:16)
[2017-08-23] MEDS: HYDRALAZINE HCL 50MG TABLET PO SCH ×2 (10:10→22:36)
[2017-08-23] MEDS: LIDOCAINE 5% PATCH TOP SCH ×3 (10:10→15:04)
[2017-08-23] MEDS: AMLODIPINE 10MG TABLET PO SCH (10:10)
[2017-08-23] MEDS ORDERED: DEXTROSE 50% WATER 50ML SYRINGE IV PRN (12:00)
[2017-08-23] MEDS ORDERED: IPRATROPIUM/ALBUTEROL 0.5-3(2.5)MG/3ML NEB HHN PRN (14:30)
[2017-08-23] MEDS ORDERED: CLONIDINE 0.1MG TABLET PO PRN (14:30)
[2017-08-23] MEDS ORDERED: ONDANSETRON HCL 4MG/2ML VIAL IV PRN (14:30)
[2017-08-23] MEDS ORDERED: DIPHENHYDRAMINE 50MG/ML VIAL IV PRN (14:30)
[2017-08-23] MEDS: INSULIN LISPRO 100 UNITS/ML SUBCUT SCH ×3 (17:00→22:45)
[2017-08-23] MEDS: CINACALCET HCL 30MG TABLET PO SCH (17:16)
[2017-08-23] MEDS: BLOOD SUGAR DIAGNOSTIC STRIP TEST SCH ×3 (17:16→21:00)
[2017-08-23] MEDS: NA PHOS,M-B/NA PHOS,DI-BA ENEMA 118ML PR PRN (18:37)
[2017-08-23 20:00] VITALS: BP 152/79
[2017-08-23] MEDS: POLYETHYLENE GLYCOL 3350 (17GM) 1 DOSE PACK PO SCH (21:00)
[2017-08-23] MEDS: LOSARTAN POTASSIUM 100 MG TABLET PO SCH (22:36)
[2017-08-23] MEDS: DORZOLAMIDE 2% OPHTH 10 ML BOTTLE BOTHEYE SCH (22:37)
[2017-08-23] MEDS: BRIMONIDINE 0.2% OPHTH DROPS 5ML BOTHEYE SCH (22:37)
[2017-08-23] MEDS: INSULIN DETEMIR UD 100 UNITS/ML SYR SUBCUT SCH (22:46)
[2017-08-24] MEDS: BRIMONIDINE 0.2% OPHTH DROPS 5ML BOTHEYE SCH ×3 (07:05→22:01)
[2017-08-24] MEDS: DORZOLAMIDE 2% OPHTH 10 ML BOTTLE BOTHEYE SCH ×3 (07:05→22:02)
[2017-08-24] MEDS: LEVOTHYROXINE SODIUM 50MCG TABLET PO SCH (07:05)
[2017-08-24] MEDS: GABAPENTIN 300MG CAPSULE PO SCH ×3 (07:05→21:58)
[2017-08-24] MEDS: BLOOD SUGAR DIAGNOSTIC STRIP TEST SCH ×4 (07:05→21:00)
[2017-08-24] MEDS: INSULIN LISPRO 100 UNITS/ML SUBCUT SCH (07:06)
[2017-08-24 08:00] VITALS: BP 160/87
[2017-08-24] MEDS: SEVELAMER CARBONATE 800 MG TABLET PO SCH ×3 (08:31→17:16)
[2017-08-24] MEDS: ZINC SULFATE 220 MG ( 50 ) CAPSULE PO SCH (08:32)
[2017-08-24] MEDS: FOLIC ACID/VITAMIN B COMP W-C TABLET PO SCH (08:32)
[2017-08-24] MEDS: LOSARTAN POTASSIUM 100 MG TABLET PO SCH (08:32)
[2017-08-24] MEDS: HYDRALAZINE HCL 50MG TABLET PO SCH ×2 (08:32→21:59)
[2017-08-24] MEDS: DOCUSATE SODIUM 100MG CAPSULE PO SCH ×2 (08:32→17:16)
[2017-08-24] MEDS: ASCORBIC ACID 500 MG TABLET PO SCH ×2 (08:32→17:16)
[2017-08-24] MEDS: AMLODIPINE 10MG TABLET PO SCH (08:33)
[2017-08-24] MEDS: LIDOCAINE 5% PATCH TOP SCH (08:33)
[2017-08-24] MEDS: BISACODYL 10MG SUPP PR SCH (08:33)
[2017-08-24] MEDS: INSULIN LISPRO (LOW DOSE) 100 UNITS/ML SUBCUT SCH ×2 (11:58→17:00)
[2017-08-24] MEDS ORDERED: INSULIN LISPRO 100 UNITS/ML SUBCUT SCH (13:00)
[2017-08-24] MEDS: NA PHOS,M-B/NA PHOS,DI-BA ENEMA 118ML PR PRN (16:08)
[2017-08-24 20:00] VITALS: BP 141/73
[2017-08-24] MEDS: POLYETHYLENE GLYCOL 3350 (17GM) 1 DOSE PACK PO SCH (21:00)
[2017-08-24] MEDS: ACETAMINOPHEN 325MG TABLET PO PRN (21:58)
[2017-08-24] MEDS: ZOLPIDEM TARTRATE 5MG TABLET PO PRN (21:59)
[2017-08-24] MEDS: INSULIN DETEMIR UD 100 UNITS/ML SYR SUBCUT SCH (22:00)
[2017-08-25] VITALS: BP 128/70
[2017-08-25] MEDS: HYDROCODONE/ACETAMINOPHEN 5/325MG TABLET PO PRN ×3 (03:17→15:31)
[2017-08-25] MEDS: LEVOTHYROXINE SODIUM 50MCG TABLET PO SCH (06:02)
[2017-08-25] MEDS: INSULIN LISPRO (LOW DOSE) 100 UNITS/ML SUBCUT SCH ×3 (06:03→17:00)
[2017-08-25] MEDS: BLOOD SUGAR DIAGNOSTIC STRIP TEST SCH ×4 (06:03→21:00)
[2017-08-25] MEDS: DORZOLAMIDE 2% OPHTH 10 ML BOTTLE BOTHEYE SCH ×3 (06:04→22:14)
[2017-08-25] MEDS: BRIMONIDINE 0.2% OPHTH DROPS 5ML BOTHEYE SCH ×3 (06:06→22:12)
[2017-08-25] MEDS: GABAPENTIN 300MG CAPSULE PO SCH ×3 (06:09→22:12)
[2017-08-25 08:00] VITALS: BP 129/87
[2017-08-25] MEDS: HYDRALAZINE HCL 50MG TABLET PO SCH ×2 (09:00→22:13)
[2017-08-25] MEDS: AMLODIPINE 10MG TABLET PO SCH (09:00)
[2017-08-25] MEDS: BISACODYL 10MG SUPP PR SCH (09:00)
[2017-08-25] MEDS: LIDOCAINE 5% PATCH TOP SCH ×2 (09:00→09:22)
[2017-08-25] MEDS: ASCORBIC ACID 500 MG TABLET PO SCH ×2 (09:17→19:53)
[2017-08-25] MEDS: DOCUSATE SODIUM 100MG CAPSULE PO SCH ×2 (09:17→19:53)
[2017-08-25] MEDS: SEVELAMER CARBONATE 800 MG TABLET PO SCH ×3 (09:17→19:54)
[2017-08-25] MEDS: FOLIC ACID/VITAMIN B COMP W-C TABLET PO SCH (09:17)
[2017-08-25] MEDS: ZINC SULFATE 220 MG ( 50 ) CAPSULE PO SCH (09:18)
[2017-08-25] MEDS: LOSARTAN POTASSIUM 100 MG TABLET PO SCH (09:18)
[2017-08-25 16:24] LABS: HEMOGLOBIN 10.1 g/dL (12.0-16.0); MEAN CORPUSCULAR HEMOGLOBIN 30.9 pg (28.0-32.0); MEAN CORPUSCULAR VOLUME 91.7 fL (81.0-99.0); PLATELET 201 x1000/uL (130-400); RED BLOOD CELL COUNT 3.27 mill/uL (4.2-5.4); RED CELL DISTRIBUTION WIDTH 17.2 % (11.6-14.6)
[2017-08-25 20:00] VITALS: BP 170/80
[2017-08-25 21:00] VITALS: BP 138/76
[2017-08-25] MEDS: ACETAMINOPHEN 325MG TABLET PO PRN (22:13)
[2017-08-25] MEDS: ZOLPIDEM TARTRATE 5MG TABLET PO PRN (22:14)
[2017-08-25 22:30] VITALS: BP 128/72
[2017-08-26] MEDS: BRIMONIDINE 0.2% OPHTH DROPS 5ML BOTHEYE SCH (06:06)
[2017-08-26] MEDS: DORZOLAMIDE 2% OPHTH 10 ML BOTTLE BOTHEYE SCH (06:06)
[2017-08-26] MEDS: GABAPENTIN 300MG CAPSULE PO SCH (06:07)
[2017-08-26] MEDS: INSULIN LISPRO (LOW DOSE) 100 UNITS/ML SUBCUT SCH (06:07)
[2017-08-26] MEDS: LEVOTHYROXINE SODIUM 50MCG TABLET PO SCH (06:07)
[2017-08-26] MEDS: BLOOD SUGAR DIAGNOSTIC STRIP TEST SCH (06:09)
[2017-08-26 06:58] LABS: BASOPHILS % 0.7 % (0.0-2.0); EOSINOPHILS % 7.3 % (0.0-5.0); HEMATOCRIT. 32.1 % (36.0-48.0); HEMOGLOBIN. 10.6 g/dL (12.0-16.0); LYMPHOCYTES % 18.9 % (20.0-50.0); MEAN CORPUSCULAR HEMOGLOBIN 30.3 pg (28.0-32.0); MEAN CORPUSCULAR VOLUME 91.9 fL (81.0-99.0); MEAN PLATELET VOLUME 9.6 fl (7.4-10.4); MONOCYTES % 14.8 % (2.0-8.0); NEUTROPHILS % 58.3 % (40.0-76.0); PLATELET 198 x1000/uL (130-400); RED CELL DISTRIBUTION WIDTH 17.1 % (11.6-14.6)
[2017-08-26 07:00] VITALS: BP_SYST 112; BP_SYST 154; BP_DIAS 72; BP_DIAS 79
[2017-08-26 08:00] VITALS: BP 154/72
[2017-08-26] MEDS: ZINC SULFATE 220 MG ( 50 ) CAPSULE PO SCH (08:48)
[2017-08-26] MEDS: ASCORBIC ACID 500 MG TABLET PO SCH (08:48)
[2017-08-26] MEDS: SEVELAMER CARBONATE 800 MG TABLET PO SCH (08:48)
[2017-08-26] MEDS: LOSARTAN POTASSIUM 100 MG TABLET PO SCH (08:48)
[2017-08-26] MEDS: DOCUSATE SODIUM 100MG CAPSULE PO SCH (08:48)
[2017-08-26] MEDS: FOLIC ACID/VITAMIN B COMP W-C TABLET PO SCH (08:48)
[2017-08-26] MEDS: AMLODIPINE 10MG TABLET PO SCH (08:49)
[2017-08-26] MEDS: LIDOCAINE 5% PATCH TOP SCH ×2 (08:49)
[2017-08-26] MEDS: HYDRALAZINE HCL 50MG TABLET PO SCH (08:49)
== END 2017-08-26 10:55 | DRG 551 ==
PROVIDERS: ADMIT Physical Medicine & Rehabilitation Spinal Cord Injury Medicine; ATTEND Internal Medicine
PROC: 5A1D70Z Performance of Urinary Filtration, Intermittent, Less than 6 Hours Per Day (ICD-10-PCS; principal; 2017-07-27)
PROC: 5A1D70Z Performance of Urinary Filtration, Intermittent, Less than 6 Hours Per Day (ICD-10-PCS; 2017-07-28)
PROC: 5A1D70Z Performance of Urinary Filtration, Intermittent, Less than 6 Hours Per Day (ICD-10-PCS; 2017-07-31)
PROC: 5A1D70Z Performance of Urinary Filtration, Intermittent, Less than 6 Hours Per Day (ICD-10-PCS; 2017-08-01)
PROC: 5A1D70Z Performance of Urinary Filtration, Intermittent, Less than 6 Hours Per Day (ICD-10-PCS; 2017-08-03)
PROC: 5A1D70Z Performance of Urinary Filtration, Intermittent, Less than 6 Hours Per Day (ICD-10-PCS; 2017-08-05)
PROC: 5A1D70Z Performance of Urinary Filtration, Intermittent, Less than 6 Hours Per Day (ICD-10-PCS; 2017-08-07)
PROC: 5A1D70Z Performance of Urinary Filtration, Intermittent, Less than 6 Hours Per Day (ICD-10-PCS; 2017-08-10)
PROC: 5A1D70Z Performance of Urinary Filtration, Intermittent, Less than 6 Hours Per Day (ICD-10-PCS; 2017-08-12)
PROC: 5A1D70Z Performance of Urinary Filtration, Intermittent, Less than 6 Hours Per Day (ICD-10-PCS; 2017-08-14)
PROC: 5A1D70Z Performance of Urinary Filtration, Intermittent, Less than 6 Hours Per Day (ICD-10-PCS; 2017-08-17)
PROC: 5A1D70Z Performance of Urinary Filtration, Intermittent, Less than 6 Hours Per Day (ICD-10-PCS; 2017-08-22)
PROC: 5A1D70Z Performance of Urinary Filtration, Intermittent, Less than 6 Hours Per Day (ICD-10-PCS; 2017-08-25)
DX: M48.02 Spinal stenosis, cervical region (principal); G82.50 Quadriplegia, unspecified; G93.40 Encephalopathy, unspecified; L89.309 Pressure ulcer of unspecified buttock, unspecified stage; E46 Unspecified protein-calorie malnutrition; G95.89 Other specified diseases of spinal cord; E11.22 Type 2 diabetes mellitus with diabetic chronic kidney disease; N18.6 End stage renal disease; I12.0 Hypertensive chronic kidney disease with stage 5 chronic kidney disease or end stage renal disease; N25.81 Secondary hyperparathyroidism of renal origin; E87.1 Hypo-osmolality and hyponatremia; R13.10 Dysphagia, unspecified; I27.20 Pulmonary hypertension, unspecified; E87.5 Hyperkalemia; D72.819 Decreased white blood cell count, unspecified; G47.00 Insomnia, unspecified; K59.00 Constipation, unspecified; I25.10 Atherosclerotic heart disease of native coronary artery without angina pectoris; J44.9 Chronic obstructive pulmonary disease, unspecified; M50.222 Other cervical disc displacement at C5-C6 level; I08.2 Rheumatic disorders of both aortic and tricuspid valves; F32.9 Major depressive disorder, single episode, unspecified; E55.9 Vitamin D deficiency, unspecified; R19.7 Diarrhea, unspecified; K76.9 Liver disease, unspecified; E11.40 Type 2 diabetes mellitus with diabetic neuropathy, unspecified; E11.319 Type 2 diabetes mellitus with unspecified diabetic retinopathy without macular edema; E03.9 Hypothyroidism, unspecified; D63.8 Anemia in other chronic diseases classified elsewhere; R26.9 Unspecified abnormalities of gait and mobility; Z87.891 Personal history of nicotine dependence; Z99.2 Dependence on renal dialysis; I25.2 Old myocardial infarction; Z95.5 Presence of coronary angioplasty implant and graft; Z83.3 Family history of diabetes mellitus; Z80.0 Family history of malignant neoplasm of digestive organs; Z79.899 Other long term (current) drug therapy; Z68.27 Body mass index [BMI] 27.0-27.9, adult
CPT/HCPCS: 36415; 73030; 74000; 76700; 80048; 80053; 80061; 82040; 82270; 82306; 82607; 82728; 82746; 82962; 83036; 83540; 83550; 83735; 83970; 84100; 84134; 84439; 84443; 84481; 84630; 85025; 85027; 86376; 86705; 86709; 86803; 87186; 87340; 92523; 92610; 93970; 97110; 97112; 97116; 97163; 97167; 97530; 97532; 97535; 97542; A4565; A6261; J0885; J1100; J1815; J2405; J7030; L0172; Q0163

== ENCOUNTER → 2017-10-07 | Outpatient (CLI) | payer MEDICARE, MEDICAID | END | disposition home or self-care (01) | LOC: RAD 12:29 | PROVIDERS: ATTEND Neurological Surgery | DX: M54.2 Cervicalgia (principal); Z98.1 Arthrodesis status; Z98.890 Other specified postprocedural states | CPT/HCPCS: 72050; 72052 ==

== ENCOUNTER 2018-10-22 15:57 | Emergency (ER) | payer MEDICARE, MEDICAID ==
[~2018-10-22] VITALS: Ht 172.7 cm; Wt 81.8 kg
[~2018-10-22 15:57] MED LIST changes: -ASPI-1158 PO; +BRIM.2 BOTHEYE; +BROM3DRO OP; +DIPH1TAB PO; +FLUT1DIS2 IH; +GABA-529 PO; +PANT40TA4 MT; +ROSU10TA PO; +SULF15DR26 OP; +TADA20TA31 PO; +TRAV2.5D OP
[2018-10-22 16:57] VITALS: BP 144/78
== END 2018-10-22 21:15 | disposition left against medical advice (07) ==
LOC: ER 15:57
DX: Z53.21 Procedure and treatment not carried out due to patient leaving prior to being seen by health care provider (principal); I25.10 Atherosclerotic heart disease of native coronary artery without angina pectoris; I12.0 Hypertensive chronic kidney disease with stage 5 chronic kidney disease or end stage renal disease; E11.22 Type 2 diabetes mellitus with diabetic chronic kidney disease; N18.6 End stage renal disease; Z99.2 Dependence on renal dialysis; Z88.3 Allergy status to other anti-infective agents

== ENCOUNTER 2019-02-10 13:17 | Inpatient (IN) | payer MEDICARE, MEDICAID ==
[~2019-02-10] VITALS: Ht 167.6 cm; Wt 77.1 kg
[2019-02-10] MEDS ORDERED: ONDANSETRON HCL 4MG/2ML INJ IV ONE (13:45)
[2019-02-10 15:44] LABS: HEMATOCRIT. 43.5 % (36.0-48.0); HEMOGLOBIN. 14.2 g/dL (12.0-16.0); MEAN CORPUSCULAR HEMOGLOBIN 29.7 pg (28.0-32.0); MEAN CORPUSCULAR VOLUME 91.1 fL (81.0-99.0); RED BLOOD CELL COUNT 4.78 mill/uL (4.2-5.4); RED CELL DISTRIBUTION WIDTH 17.8 % (11.6-14.6)
[2019-02-10 15:49] LABS: CHLORIDE 96 mEq/L (98-107)
[2019-02-10 16:25] LABS: INR 1.2; PROTHROMBIN TIME 12.5 sec (9.6-11.0)
[2019-02-10] MEDS ORDERED: SODIUM BICARBONATE 8.4% 1 MEQ/ML 50ML SYR IV NR (17:15)
[2019-02-10] MEDS ORDERED: DEXTROSE 50% WATER 50ML SYRINGE IV NR (17:15)
[2019-02-10] MEDS ORDERED: ALBUTEROL (0.083%) 2.5MG/3ML NEB HHN NR (17:15)
[2019-02-10] MEDS ORDERED: CALCIUM CHLORIDE 1GM/10ML SYR IV NR (17:15)
[2019-02-10] MEDS ORDERED: INSULIN REGULAR (HUMULIN R) 300UNITS/3ML IV NR (17:15)
[2019-02-10] MEDS ORDERED: ONDANSETRON HCL 4MG/2ML INJ IV PRN (18:30)
[2019-02-10] MEDS ORDERED: DOCUSATE SODIUM 100MG CAPSULE PO PRN (18:30)
[2019-02-10] MEDS ORDERED: DIPHENHYDRAMINE 50MG/ML VIAL IV PRN (18:30)
[2019-02-10] MEDS ORDERED: CLONIDINE 0.1MG TABLET PO PRN (18:30)
[2019-02-10] MEDS ORDERED: ACETAMINOPHEN 325MG TABLET PO PRN (18:30)
[2019-02-10] MEDS ORDERED: GUAIFENESIN 200MG/10ML SUGAR FREE UDC PO PRN (18:30)
[2019-02-10] MEDS ORDERED: HYDROCODONE/ACETAMINOPHEN 5/325MG TABLET PO PRN (18:30)
[2019-02-10] MEDS ORDERED: MAGNESIUM/ALUMINUM HYDROXIDE/SIMETHICONE 30ML UDC PO PRN (18:30)
[2019-02-10 20:00] VITALS: BP 123/64
[2019-02-10] MEDS ORDERED: DEXTROSE 50% WATER 50ML SYRINGE IV PRN (23:00)
[2019-02-11] VITALS: BP 143/70
[2019-02-11 01:09] LABS: PHOSPHORUS 3.3 mg/dL (2.5-4.9)
[2019-02-11 01:14] LABS: CREATINE KINASE MB FRACTION 2.1 ng/mL (0.5-3.6)
[2019-02-11 04:00] VITALS: BP 119/56
[2019-02-11 06:39] LABS: HEMATOCRIT. 41.2 % (36.0-48.0); HEMOGLOBIN. 13.4 g/dL (12.0-16.0); MEAN CORPUSCULAR HEMOGLOBIN 29.3 pg (28.0-32.0); MEAN CORPUSCULAR VOLUME 90.2 fL (81.0-99.0); MEAN PLATELET VOLUME 9.4 fl (7.4-10.4); PLATELET 183 x1000/uL (130-400); RED BLOOD CELL COUNT 4.57 mill/uL (4.2-5.4); RED CELL DISTRIBUTION WIDTH 17.9 % (11.6-14.6)
[2019-02-11] MEDS: BLOOD SUGAR DIAGNOSTIC STRIP TEST SCH ×2 (06:41→12:10)
[2019-02-11] MEDS: INSULIN LISPRO 100 UNITS/ML SUBCUT SCH ×2 (06:41→12:40)
[2019-02-11 06:54] LABS: CHLORIDE 100 mEq/L (98-107)
[2019-02-11 07:16] LABS: CREATINE KINASE MB FRACTION 1.7 ng/mL (0.5-3.6)
[2019-02-11 07:17] LABS: LDL CHOLESTEROL 70 mg/dL (5-100); PHOSPHORUS 4.1 mg/dL (2.5-4.9)
[2019-02-11 07:22] LABS: CREATINE KINASE 249 IU/L (26-192)
[2019-02-11 07:23] LABS: HDL CHOLESTEROL 69 mg/dL (40-59)
[2019-02-11 08:25] VITALS: BP 124/54
[2019-02-11 09:10] LABS: PLATELET ESTIMATE NORMAL
[2019-02-11 13:39] VITALS: BP 149/80
== END 2019-02-11 14:45 | disposition home or self-care (01) | DRG 640 ==
LOC: ER 13:17 → 8WST 15:22 → EDBEDREQ 15:24 → ENRESERV 16:21 → 8WST 18:38
PROVIDERS: ADMIT Internal Medicine; ATTEND Internal Medicine
PROC: 5A1D70Z Performance of Urinary Filtration, Intermittent, Less than 6 Hours Per Day (ICD-10-PCS; principal; 2019-02-10)
DX: E87.5 Hyperkalemia (principal); N18.6 End stage renal disease; I12.0 Hypertensive chronic kidney disease with stage 5 chronic kidney disease or end stage renal disease; E87.70 Fluid overload, unspecified; E11.22 Type 2 diabetes mellitus with diabetic chronic kidney disease; E87.1 Hypo-osmolality and hyponatremia; E11.319 Type 2 diabetes mellitus with unspecified diabetic retinopathy without macular edema; E83.39 Other disorders of phosphorus metabolism; H54.61 Unqualified visual loss, right eye, normal vision left eye; I25.10 Atherosclerotic heart disease of native coronary artery without angina pectoris; K74.60 Unspecified cirrhosis of liver; Z87.19 Personal history of other diseases of the digestive system; Z87.891 Personal history of nicotine dependence; Z91.14 Patient's other noncompliance with medication regimen; Z91.15 Patient's noncompliance with renal dialysis; I25.2 Old myocardial infarction; Z98.51 Tubal ligation status; Z99.2 Dependence on renal dialysis; Z88.1 Allergy status to other antibiotic agents; Z88.8 Allergy status to other drugs, medicaments and biological substances; Z79.899 Other long term (current) drug therapy; K76.9 Liver disease, unspecified
CPT/HCPCS: 36415; 71045; 80061; 82550; 82553; 82962; 83036; 83735; 84100; 84443; 96374; 99285; J1815; J2405; J3490

== ENCOUNTER 2020-05-16 21:29 | Emergency (ER) | payer MEDICARE, MEDICAID ==
[~2020-05-16] VITALS: Ht 172.7 cm; Wt 75.0 kg
[~2020-05-16 21:29] MED LIST changes: +CRES10 PO; -ROSU10TA PO
[2020-05-17 00:51] LABS: CHLORIDE 100 mEq/L (98-107)
[2020-05-17 01:03] LABS: BASOPHILS % 0.8 % (0.0-2.0); EOSINOPHILS % 2.7 % (0.0-5.0); MEAN CORPUSCULAR HEMOGLOBIN 36.4 pg (28.0-32.0); MEAN CORPUSCULAR VOLUME 108.2 fL (81.0-99.0); MONOCYTES % 13.1 % (2.0-8.0); NEUTROPHILS % 58.4 % (40.0-76.0); PLATELET 438 x1000/uL (130-400); RED BLOOD CELL COUNT 1.51 mill/uL (4.2-5.4)
[2020-05-17 01:30] LABS: HEMATOCRIT. 16.4 % (36.0-48.0); HEMOGLOBIN. 5.5 g/dL (12.0-16.0)
[2020-05-17 03:52] LABS: INR 1.1; PROTHROMBIN TIME 11.2 sec (9.6-11.0)
[2020-05-17] MEDS ORDERED: ONDANSETRON HCL 4MG/2ML INJ IV ONE (05:00)
[2020-05-17] MEDS ORDERED: ONDANSETRON HCL 4MG/2ML INJ ONE (05:03)
[2020-05-17 05:39] VITALS: BP 134/50
== END 2020-05-17 06:38 | disposition home or self-care (01) ==
LOC: ER 21:29
DX: D64.9 Anemia, unspecified (principal); I12.0 Hypertensive chronic kidney disease with stage 5 chronic kidney disease or end stage renal disease; E11.22 Type 2 diabetes mellitus with diabetic chronic kidney disease; N18.6 End stage renal disease; I25.10 Atherosclerotic heart disease of native coronary artery without angina pectoris; Z99.2 Dependence on renal dialysis; Z88.3 Allergy status to other anti-infective agents; Z98.51 Tubal ligation status; Z91.013 Allergy to seafood
CPT/HCPCS: 36415; 80053; 85025; 85610; 86850; 86900; 86901; 86920; 93005; 96374; 99284; J2405; P9016

== ENCOUNTER 2020-12-27 10:13 | Emergency (ER) | payer MEDICARE, MEDICAID ==
[~2020-12-27] VITALS: Ht 172.7 cm; Wt 75.0 kg
[~2020-12-27 10:13] MED LIST changes: -PANT40TA4 MT; +PANT40TA51 MT
[2020-12-27 10:28] VITALS: BP 95/69
[2020-12-27] MEDS ORDERED: TRAMADOL 50MG TABLET PO ONE (11:30)
[2020-12-27] MEDS ORDERED: TRAM50TA3 PO (12:58)
== END 2020-12-27 13:37 | disposition home or self-care (01) ==
LOC: ER 10:13
DX: S30.0XXA Contusion of lower back and pelvis, initial encounter (principal); M25.562 Pain in left knee; E11.22 Type 2 diabetes mellitus with diabetic chronic kidney disease; I13.11 Hypertensive heart and chronic kidney disease without heart failure, with stage 5 chronic kidney disease, or end stage renal disease; N18.6 End stage renal disease; Z99.2 Dependence on renal dialysis; Z91.018 Allergy to other foods; Z88.1 Allergy status to other antibiotic agents; W01.0XXA Fall on same level from slipping, tripping and stumbling without subsequent striking against object, initial encounter; Y93.89 Activity, other specified; Y92.018 Other place in single-family (private) house as the place of occurrence of the external cause
CPT/HCPCS: 72100; 73562; 99284

== ENCOUNTER 2023-01-14 00:45 | Emergency (ER) | payer OTHER, MEDICAID ==
[~2023-01-14] VITALS: Ht 170.2 cm; Wt 54.0 kg
[~2023-01-14 00:45] MED LIST changes: +TRAM50TA3 PO; -TRAV2.5D OP; +TRAV2.5D9 OP
[2023-01-14 02:08] LABS: BASOPHILS % 0.9 % (0.0-2.0); HEMATOCRIT. 25.5 % (36.0-48.0); HEMOGLOBIN. 8.7 g/dL (12.0-16.0); LYMPHOCYTES % 24.2 % (20.0-50.0); MEAN CORPUSCULAR HEMOGLOBIN 32.1 pg (28.0-32.0); MEAN CORPUSCULAR VOLUME 93.8 fL (81.0-99.0); MEAN PLATELET VOLUME 11.2 fl (7.4-10.4); MONOCYTES % 14.3 % (2.0-8.0); NEUTROPHILS % 58.6 % (40.0-76.0); PLATELET 95 x1000/uL (130-400); RED BLOOD CELL COUNT 2.72 mill/uL (4.2-5.4); RED CELL DISTRIBUTION WIDTH 16.9 % (11.6-14.6)
[2023-01-14 02:10] LABS: CHLORIDE 97 mEq/L (98-107)
[2023-01-14 08:00] VITALS: BP 132/71
== END 2023-01-14 09:03 | disposition short-term general hospital (02) ==
LOC: ER 00:45
DX: E11.22 Type 2 diabetes mellitus with diabetic chronic kidney disease (principal); I12.0 Hypertensive chronic kidney disease with stage 5 chronic kidney disease or end stage renal disease; N18.6 End stage renal disease; Z98.51 Tubal ligation status; Z88.1 Allergy status to other antibiotic agents; Z91.013 Allergy to seafood; Z79.899 Other long term (current) drug therapy
CPT/HCPCS: 36415; 71045; 80053; 84484; 85025; 93005; 99285

== ENCOUNTER 2023-12-25 16:29 | Emergency (ER) | payer OTHER, MEDICAID ==
[~2023-12-25] VITALS: Ht 170.2 cm; Wt 66.0 kg
[~2023-12-25 16:29] MED LIST changes: -HYDR-4135 PO; +HYDR50TA39 PO; +TRAV2.5D OP; -TRAV2.5D9 OP
[2023-12-25 16:40] VITALS: O2SAT 100
[2023-12-25 18:03] LABS: BASOPHILS % 0.4 % (0.0-2.0); EOSINOPHILS % 1.2 % (0.0-5.0); HEMATOCRIT. 30.2 % (36.0-48.0); HEMOGLOBIN. 9.8 g/dL (12.0-16.0); LYMPHOCYTES % 14.5 % (20.0-50.0); MEAN CORPUSCULAR HGB CONC 32.3 g/dL (31.0-37.0); MEAN CORPUSCULAR VOLUME 96.1 fL (81.0-99.0); MEAN PLATELET VOLUME 8.6 fl (7.4-10.4); MONOCYTES % 12.8 % (2.0-8.0); NEUTROPHILS % 71.1 % (40.0-76.0); PLATELET 245 x1000/uL (130-400); RED BLOOD CELL COUNT 3.14 mill/uL (4.2-5.4); RED CELL DISTRIBUTION WIDTH 20.1 % (11.6-14.6); WHITE BLOOD COUNT 6.2 x1000/uL (4.5-11.0)
[2023-12-25 18:16] LABS: ALANINE AMINOTRANSFERASE 15 IU/L (10-49); ALBUMIN 3.9 g/dL (3.2-4.8); ASPARTATE AMINOTRANSFERASE 31 IU/L (<34); BILIRUBIN TOTAL 0.8 mg/dL (0.1-1.0); CALCIUM 9.5 mg/dL (8.7-10.4); CARBON DIOXIDE 25 mEq/L (21-32); CHLORIDE 96 mEq/L (98-107); GLUCOSE 118 mg/dL (70-105); POTASSIUM 4.7 mEq/L (3.5-5.1); PROTEIN TOTAL 8.1 g/dL (6.0-8.3); SODIUM 130 mEq/L (136-145); UREA NITROGEN BLOOD 42 mg/dL (9-23)
[2023-12-25 18:19] LABS: CREATININE 10.3 mg/dL (0.6-1.0)
[2023-12-25] MEDS: ACETAMINOPHEN 325MG TABLET PO ONE (18:45)
[2023-12-25] MEDS ORDERED: ACET-2708 MT (19:17)
[2023-12-25 20:08] VITALS: BP 116/89; PULSE 55; RESP 18; TEMP 98.5
== END 2023-12-25 20:10 | disposition home or self-care (01) ==
LOC: ER 16:29
DX: S52.501A Unspecified fracture of the lower end of right radius, initial encounter for closed fracture (principal); E87.1 Hypo-osmolality and hyponatremia; G89.11 Acute pain due to trauma; E11.22 Type 2 diabetes mellitus with diabetic chronic kidney disease; I12.0 Hypertensive chronic kidney disease with stage 5 chronic kidney disease or end stage renal disease; N18.6 End stage renal disease; Z99.2 Dependence on renal dialysis; Z79.899 Other long term (current) drug therapy; W18.39XA Other fall on same level, initial encounter; Y93.89 Activity, other specified; Y92.89 Other specified places as the place of occurrence of the external cause; Y99.8 Other external cause status
CPT/HCPCS: 29125; 36415; 73110; 80053; 85025; 99284; A4565